=== PATIENT | female | born 1960 | race Caucasian/White ===

== ENCOUNTER 2019-06-05 11:34 | Inpatient (IN) ==
--- NOTE | 2019-06-05 13:52 | PROVIDER DOCUMENTATION ---
HPI-General Adult - General Chief Complaint: Flu Symptoms Stated Complaint: BODY PAIN Time Seen by Provider: 06/05/19 11:41 Source: patient Allergies/Adverse Reactions: Patient Allergies Allergy/AdvReac Type Severity Reaction Status Date / Time methadone [Methadone] AdvReac Severe HEADACHE Verified 05/24/12 09:38 Home Medications: Home Medication List Medication Instructions Recorded Confirmed Last Taken Type Famotidine [Pepcid] 20 mg PO DAILY 06/05/19 06/05/19 Unknown History Lisinopril 20 mg PO DAILY 06/05/19 06/05/19 Unknown History - History of Present Illness -Gen Adult Nature of Presenting Problems: [id number] presents to the ER accompanied by her sisters with c/o chills, body aches since yesterday and decreased appetite for 2 weeks. Patient denies any fever. Family reports AMS with progressing dementia. Patient is a cancer patient and has not been receiving chemo that they are aware of. Location of Pain/Injury: reports: generalized Pain Radiation: reports: no radiation Quality of Pain: reports: aching Onset/Duration: reports: 24 hours ago Associated Symptoms: reports: cough, fever/chills (chills), loss of appetite. denies: sinus congestion/drainage Similar Symptoms Previously?: No Recently seen or treated by another doctor?: No Review of Systems - Adult - REVIEW OF SYSTEMS - ADULT Constitutional: reports: see HPI, chills. denies: fever Eyes: reports: no symptoms reported Ears, Nose, Mouth & Throat: reports: no symptoms reported. denies: ear di scharge, ear pain, sinus problem Cardiovascular: reports: no symptoms reported. denies: chest pain, orthopnea, syncope Respiratory: reports: see HPI, cough. denies: shortness of breath, wheezing Gastrointestinal: reports: no symptoms reported. denies: abdominal pain, diarrhea, nausea, vomiting Genitourinary: reports: no symptoms reported Musculoskeletal: reports: no symptoms reported Integumentary: reports: no symptoms reported Neurological: reports: no symptoms reported Psychiatric: reports: no symptoms reported Endocrine: reports: no symptoms reported Hematologic/Lymphatic: reports: no symptoms reported Allergic/Immunologic: reports: no symptoms reported All Other Systems: Reviewed and Negative Past History - Adult - PAST MEDICAL HISTORY-ADULT Review of Records: reports: Old Records Reviewed, Nursing Assessment Review, Medications Reviewed, Social history reviewed & non-contributory. Major Childhood Illnesses: reports: denies history Cardiovascular: reports: denies history Respiratory: reports: denies history Gastrointestinal: reports: denies history Obstetrical/Gynecological: reports: denies history Genitourinary: reports: denies history Musculoskeletal: reports: denies history Neurological: reports: denies history Endocrine/Immune: reports: denies history Other Conditions: reports: denies history - IMMUNIZATION STATUS Childhood Immunizations: See Nurse Assessment Flu Vaccine: See Nurse Assessment - FAMILY HISTORY Family History: reviewed, not pertinent - SOCIAL HISTORY Smoking: denies Substance Use: denies Living Situation: family Physical Exam-General - PHYSICAL EXAM-ADULT Initial Vital Signs Reviewed: Yes - CONSTITUTIONAL General Appearance: alert, moderate distress - EYES Eyes: PERRL/EOMI, pink conjunctivae - HEAD, EARS, NOSE, MOUTH & THROAT HENMT: moist mucous membranes, TMs normal - NECK Neck: non-tender, full range of motion, supple. negative: lymphadenopathy - RESPIRATORY Respiratory: lungs clear, normal breath sounds, other (dry cough) - CARDIOVASCULAR Cardiovascular: regular rate, rhythm, tachycardia - GASTROINTESTINAL (ABDOMEN) Abdominal Exam: soft, tenderness (epigastric) - MUSCULOSKELETAL Extremity: normal gait - SKIN Integumentary: warm/dry - NEUROLOGIC Neurologic: grossly normal - PSYCHIATRIC Psych/Mental Status: other (patient oriented to name, birthday) Progress - PLAN OF CARE/RESULTS Progress/Plan/Lab Results: Vital Signs - 8 hr 06/05/19 11:46 Temperature 98.0 F Pulse Rate 117 H Respiratory Rate 16 Blood Pressure 145/92 O2 Sat by Pulse Oximetry 99 06/05/19 11:53 Influenza Screen - Final Nasopharyngeal Orders Category Date Time Status INFLUENZA SCREEN A/B Stat Lab 06/05/19 11:53 Completed Result Diagrams: 06/05/19 15:00 06/05/19 15:00 - CONSULTS/PCP/HOSPITALIST Notification #1 *Consult/PCP/Hospitalist*: Dr Kendall Time Discussed: 16:16 Reason/Comments: AMS, hyponatremia, hypokalemia Consult Disposition: Admit Departure - Departure Date of Disposition Decision: 06/05/19 Time of Disposition Decision: 16:16 DIAGNOSIS: Acute hypokalemia, Hyponatremia AMS (altered mental status) Qualifiers: Altered mental status type: unspecified Qualified Code(s): R41.82 - Altered mental status, unspecified Disposition: ADMITTED INPATIENT 09 Certified Medical Emergency: Emergent Condition: Critical Additional Instructions: ED Follow Up Instructions: You have been treated by a care provider in the Emergency Department. These instructions are being provided to you so you can have an understanding of how to care for yourself upon discharge. Upon discharge from the Emergency Department, you are responsible for making arrangements for follow-up care by a physician of your choice. Take all prescribed medications as directed. Return to the Emergency Department immediately for any new or worsening symptoms. You may call the Physician Referral phone number at [phone] to obtain a list of Physicians who are taking new patients. Referrals and Follow-Ups: Julio Barnes MD [Primary Care Provider] - - Critical Care Note This patient required my direct & personal management of CC.: No Attestation - Physician/ ANAND Attestation Patient care was provided by Advanced Practice Provider:: Yes Advanced Practice Provider:: Adarsh Yoon Advanced Practice Provider documentation review:: The Mid-level provider documentation, treatment plan and medical decision making was reviewed by the physician who agrees with all treatment and medical decision making by the MLP. The physician spent face to face time with patient:: No Advanced Practice Provider documentation review:: Supervising physician onsite and consulted in the evaluation and care of this patient. The physician did not have a face to face encounter with the patient.
--- NOTE | 2019-06-05 14:36 | Diag Imaging Result Doc PS360 ---
CHEST-2 VIEWS - 06/05/2019 INDICATION: lethargic COMPARISON: 01/17/2019 FINDINGS: Stable surgical suture lines in the right upper lobe. The lungs are clear. Heart size is normal. No pneumothorax or pleural effusion. IMPRESSION: No acute disease or change from prior. Electronically signed by Sivakumar Gipson 06/05/2019 2:34 PM
--- NOTE | 2019-06-05 14:52 | Diag Imaging Result Doc PS360 ---
CT HEAD W/O CONTRAST - 06/05/2019 INDICATION: AMS COMPARISON: 05/21/2018 FINDINGS: There is been some worsening in the mild periventricular white matter chronic microvascular ischemia. No intracranial mass or hemorrhage. There is significant vascular calcification of the carotid siphons. The skull is intact. The sinuses, mastoids, and middle ears are clear. IMPRESSION: Worsening cerebral white matter chronic microvascular ischemia. This exam was performed using automated exposure control, adjustment of mA or kV according to patient size, and/or use of iterative reconstruction technique Electronically signed by Sivakumar Gipson 06/05/2019 2:50 PM
[2019-06-05 15:14] LABS: URINE SOURCE CLEAN CATCH
[2019-06-05 15:19] LABS: BASO# 0.02 X1000 (0.0-0.2); BASO% 0.3 % (0.0-0.8); EOS# 0.03 X1000 (0.0-0.7); EOS% 0.5 % (0.0-10.0); HEMATOCRIT 33.4 % (37.0-47.0); HEMOGLOBIN 11.6 g/dL (12.0-16.0); LYMPH# 0.79 X1000 (1.2-3.4); LYMPH% 12.5 % (20.5-51.1); MCH 33.3 PG (27-31); MCHC 34.7 g/dL (33-37); MONO# 0.54 X1000 (0.11-0.59); MONO% 8.5 % (1.7-9.3); MPV 8.9 FL (7.4-10.4); NEUT# 4.96 X1000 (1.4-6.5); NEUT% 78.2 % (42.2-75.2); PLT 158 X1000 (130-400); RBC 3.48 XMIL (4.2-5.4); RDW 15.2 % (11.5-14.5); WBC 6.34 X1000 (4.8-10.8)
[2019-06-05 15:21] LABS: BILIRUBIN URINE SMALL (NEGATIVE); BLOOD URINE NEGATIVE (NEGATIVE); COLOR YELLOW; GLUCOSE URINE NEGATIVE (NEGATIVE); KETONE URINE NEGATIVE (NEGATIVE); LEUKOCYTES URINE NEGATIVE (NEGATIVE); NITRITE URINE NEGATIVE (NEGATIVE); PH URINE 6.5; PROTEIN URINE TRACE mg/dL (NEGATIVE); SP GRAVITY URINE 1.014; TURBIDITY URINE CLEAR (CLEAR); UROBILINOGEN URINE 6 mg/dL (NORMAL)
[2019-06-05 15:24] LABS: UR EPITHELIAL CELLS <10 /HPF (<10); URINE BACTERIA NEGATIVE /HPF; URINE RBC <10 /HPF (<10); URINE WBC <10 /HPF (<10)
[2019-06-05 15:33] LABS: URINE CRYSTALS NONE SEEN
[2019-06-05 15:34] LABS: URINE SMALL ROUND CELLS RENAL PRESENT
[2019-06-05 15:46] LABS: ALB/GLOB RATIO 0.7; CALCIUM 8.8 mg/dL (8.8-10.2); CREATININE 1.1 mg/dL (0.5-0.9); POTASSIUM 2.8 mmol/L (3.5-5.1); TOTAL BILIRUBIN 2.2 mg/dL (0.20-1.00); TOTAL PROTEIN 7.2 g/dL (6.3-8.3)
[2019-06-05 16:00] LABS: UR AMPHETAMINES QUAL NONE DETECTED (NONE DETECT); UR BARBITUATES QUAL NONE DETECTED (NONE DETECT); UR BENZODIAZEPIN QUAL NONE DETECTED (NONE DETECT); UR CANNABINOIDS QUAL NONE DETECTED (NONE DETECT); UR COCAINE QUAL NONE DETECTED (NONE DETECT); UR METHADONE QUAL NONE DETECTED (NONE DETECT); UR OPIATES QUAL PRESUMPTIVE POSITIVE (NONE DETECT); UR OXYCODONE QUAL NONE DETECTED (NONE DETECT); UR PCP QUAL NONE DETECTED (NONE DETECT)
[2019-06-05] MEDS ORDERED: NS 1,000 ML IV ONE (16:04)
[2019-06-05] MEDS ORDERED: KLOR-CON PO ONE ×2 (16:09→23:00)
[2019-06-05] MEDS ORDERED: M.V.I.-12 10 ML, FOLIC ACID 1 MG, MAGNESIUM SULFATE 1 GM, THIAMINE 100 MG in NS 1,000 ML IV ONE (16:10)
--- NOTE | 2019-06-05 17:52 | EKG Report ---
Test Performed on : 06/05/2019 3:19:11 PM Test Reason : ED. NO EKG ORDER FOR MUSE Blood Pressure : / mmHG Vent. Rate : 088 BPM Atrial Rate : 088 BPM P-R Int : 144 ms QRS Dur : 072 ms QT Int : 410 ms P-R-T Axes : 052 024 070 degrees QTc Int : 496 ms Normal sinus rhythm. Low voltage QRS Nonspecific T wave abnormality Abnormal ECG When compared with ECG of 17-JAN-2019 17:14, No significant change was found Unconfirmed Result
--- NOTE | 2019-06-05 18:49 | Diag Imaging Result Doc PS360 ---
EXAM: CT THORAX/ABD/PELVIS W/CON 06/05/2019 HISTORY: abd pain TECHNIQUE: This exam was performed using automated exposure control, adjustment of mA or kV according to patient size, and/or use of iterative reconstruction technique. COMMENT: Thorax: The current study is compared with that of 04/25/2019. There are no abnormal fluid collections. The aorta is not distended and there is no evidence of dissection. There has been previous right upper lobectomy. The appearance of the lung parenchyma has not changed significantly since the previous study. There are some calcified nodes present in the left hilum. The regional skeleton is stable in appearance. ABDOMEN: There are no previous abdominal studies available for comparison. The liver is markedly but heterogeneously hypodense, suggesting fatty change. There has been cholecystectomy. The aorta is not distended. There are atherosclerotic calcifications. The mesenteric and renal arteries are patent. The gastric antrum is not well distended and the possibility of mucosal thickening cannot be excluded. There is dilatation of the pancreatic duct with pancreatic calcifications and atrophy in the body and tail. There are multiple calcifications in the head of the pancreas as well as a focus of increased enhancement in the head of the pancreas measuring 3.5 x 2.0 x 3.4 cm. This was partially imaged on the CT of the chest from 04/25/2019. There is fairly abrupt narrowing of the pancreatic duct around the location of the mass. The common bile duct measures 7 mm in diameter. The pancreatic duct in the body of the pancreas measures almost 8 mm. Previously it measured less than six. The colon is not well distended. The small bowel is not distended. There is a left periaortic node below the renal pedicle measuring over 15 mm in diameter. Pelvis: There is some stool in the rectosigmoid colon. There is no evidence of free fluid. There has been hysterectomy. The urinary bladder is not distended. The regional skeleton is stable in appearance. IMPRESSION: 1. Stable CT of the chest. 2. Pancreatic mass with evidence of previous chronic pancreatitis. Dilatation of the pancreatic duct. Electronically signed by Scooby Hernandez 06/05/2019 6:46 PM
[2019-06-05] MEDS ORDERED: TYLENOL PO PRN (19:38)
[2019-06-05] MEDS ORDERED: ATIVAN PO SCH (19:41)
[2019-06-05] MEDS: POTASSIUM CHLORIDE 20 MEQ/SWI 20 MEQ/100 ML IVPB IV SCH ×2 (20:51→23:00)
--- NOTE | 2019-06-05 22:36 | HISTORY AND PHYSICAL ---
HISTORY OF PRESENT ILLNESS: A 58-year-old white female patient admitted with weakness, unsteady gait, confusion. The patient did have altered mental status, some nausea. The patient does drink alcohol heavily. History part was limited. Oral intake was poor. The patient was brought to the emergency room, evaluated by the ER physician. Admitted for further care. I evaluated the patient. LABORATORY DATA: CT scan noted. Discussed with the patient, her and daughter. We will admit the patient. IV hydration. Close observation. Seizure and DT precaution. Overall plan discussed. The detailed history and physical to be dictated. The patient's lab data revealed WBC 6.34, hemoglobin 11.6, hematocrit 33.4, potassium 2.8. Sodium 128, BUN 5, creatinine 1.1. Total bilirubin 2.2. Amylase and lipase were normal. Urine drug screen positive for opiates. cc: Julio Barnes MD
[2019-06-06] MEDS ORDERED: ZOFRAN IV PRN (05:01)
[2019-06-06 05:34] LABS: INR 1.24; PROTIME 15.8 Seconds (11.0-16.0)
[2019-06-06 05:47] LABS: AGAP 16; ALB/GLOB RATIO 0.7; ALBUMIN 2.9 g/dL (3.5-5.0); ALKALINE PHOSPHATASE 94 U/L (32-104); BUN 4 mg/dL (8-22); CALCIUM 8.1 mg/dL (8.8-10.2); CHLORIDE 98 mmol/L (98-107); COSMO 262; CREATININE 0.9 mg/dL (0.5-0.9); ESTIMATED GFR > 60; GLUCOSE 107 mg/dL (70-104); GOT 50 U/L (10-30); GPT 10 U/L (10-36); MAGNESIUM 2.2 mg/dL (1.5-2.7); POTASSIUM 4.1 mmol/L (3.5-5.1); SODIUM 132 mmol/L (136-145); TCO2 18 mmol/L (25-35); TOTAL BILIRUBIN 1.94 mg/dL (0.20-1.00); TOTAL PROTEIN 6.8 g/dL (6.3-8.3)
[2019-06-06 06:25] LABS: FREE T4 0.1 ng/dL (0.93-1.70)
[2019-06-06] MEDS ORDERED: M.V.I.-12 10 ML, FOLIC ACID 1 MG, MAGNESIUM SULFATE 1 GM, THIAMINE 100 MG in NS 1,000 ML IV ONE (06:44)
[2019-06-06] MEDS ORDERED: ATIVAN PO SCH (06:45)
[2019-06-06] MEDS ORDERED: TOPROL XL PO ONE (06:52)
[2019-06-06] MEDS: SYNTHROID PO SCH (06:59)
[2019-06-06] MEDS: PROTONIX IV SCH (07:00)
[2019-06-06] MEDS ORDERED: PROTONIX IV SCH (07:00)
[2019-06-06] MEDS ORDERED: SODIUM CHLORIDE 0.9% INJ SCH (07:00)
--- NOTE | 2019-06-06 08:01 | PROGRESS NOTE ---
DATE: 06/06/2019 SUBJECTIVELY: Ms. Agrawal is doing fair. The patient is still has some epigastric pain. No nausea or vomiting. No high-grade fever. Occasional chills. The patient does have at times tachycardia. No typical chest pain. Her O2 saturation is satisfactory. Patient admitted with alcohol abuse, abdominal pain, altered mental status. OBJECTIVE: Vital signs: Noted. Heart rate 117, blood pressure 145/92, temperature 98 degrees. Neck: Supple. No JVD. Lungs: Bilateral good air entry present. Cardiovascular: S1 and S2. Tachycardia. Abdomen: Soft. No distention. Tenderness in the epigastrium. Extremities: No cyanosis, clubbing. No acute DVT. Central nervous system: Alert, awake. Answering questions fair. CONSIDERATION: Patient admitted with abdominal pain, found to have pancreatic mass, chronic pancreatitis. Her other problems includes alcohol abuse, hypothyroidism, hypertension, tachycardia. LABORATORY DATA: Done today revealed PT/INR 1.24. Sodium 132, potassium improved to 4.1, blood sugar 107. Total bilirubin 1.94. TSH was 100, free T4 0.1. PLAN: I am going to resume her Synthroid, give her beta patsy, continue rest of the medicine, give her banana bag and then IV fluid, watch her for DT and seizure precaution, and GI consult with Dr. Haley. Overall plan discussed with the patient and she is in agreement. cc: Julio Barnes MD
--- NOTE | 2019-06-06 09:01 | HISTORY AND PHYSICAL ---
CHIEF COMPLAINT: Weakness, altered mental status. HISTORY OF PRESENT ILLNESS: A 58-year-old, white, female patient, admitted with chills, body ache, decreased appetite for 2 weeks, altered mental status. The patient is very vague and poor historian. The patient does have multiple medical problems, including hypertension, hypothyroidism, history of recurrent pancreatitis in the past, and chronic pancreatitis now, history of alcohol abuse, lung cancer. The patient is noncompliant to followup. Lately, the patient was not doing well. She was feeling weak, not eating well, increasing confusion, weakness. According to the patient and daughter, she was drinking hard liquor in large amount. She does have problem with recent memory. The patient did have weakness, some chills. She vomited once the day prior to admission. Does have cough with scanty sputum production. Complaining of pain in the abdomen, which was epigastric area. Few loose stools. No hematemesis or melena. Unquantified weight loss. No heat or cold intolerance. At times, generalized pain. She was feeling weak all over. History part was limited. No joint swelling or redness. No focal weakness. No further history available at this time. She denied any dysuria or hematuria. ALLERGIES: Methadone. HOME MEDICATIONS: Include Pepcid, lisinopril, the patient was supposed to be on Synthroid. PAST MEDICAL HISTORY: Significant for chronic pancreatitis, hypothyroidism, gastritis, history of lung cancer, history of throat cancer, chronic pain, alcohol abuse. PERSONAL HISTORY: . Lives with the . Nonsmoker. Does drink alcohol in large amount, hard liquor mainly. The patient buys pain medication from the street, and she was taking it. REVIEW OF SYSTEMS: As per HPI. No major depression. No suicidal or homicidal ideation. FAMILY HISTORY: Noncontributory. PHYSICAL EXAMINATION: GENERAL: Middle-aged, white female patient in mild distress. VITAL SIGNS: Blood pressure 145/92, pulse on admission was 117 (improved to 89), temperature 98 degrees, respirations 16, O2 saturation on room air was 99. SKIN: The patient does have some bruise ze and petechiae. HEENT: Head atraumatic, normocephalic. [place] conjunctivae. Icteric sclerae. Extraocular muscle movement normal. Fundus cannot be penetrated. Good oral hygiene. No tonsillopharyngeal congestion or exudate. Ears and nose benign. NECK: Supple. No JVD, thyromegaly, or lymphadenopathy. CHEST: Bilateral good air entry present. Few basal crepitations. Occasional wheezing. CARDIOVASCULAR: S1 and S2 heard. No gallop or thrill. ABDOMEN: Soft, globular. Bowel sounds present. The patient does have tenderness in the upper abdomen. No guarding or rigidity. EXTREMITIES: No cyanosis, clubbing. No acute DVT. CENTRAL NERVOUS SYSTEM: Alert, awake, able to move all 4 limbs. The patient did have problem with recent memory. At times, she was not oriented to time, place, and person. ADMISSION LABORATORY DATA: Hemoglobin 11.6, hematocrit 33.4, WBC count 6.34, platelet count 158,000. The patient did have hyponatremia, sodium of 128, potassium 2.8, blood glucose 135. Bilirubin 2.2, alkaline phosphatase was 96. Lipase was 32. Urinalysis was benign. Urine drug screen was positive for opiates. Alcohol level was 0. CONSIDERATION: The patient presented with altered mental status, epigastric pain, consideration of gastritis, metabolic encephalopathy. The patient does have history of hypertension, gastritis, chronic pancreatitis. I did a CT scan of the abdomen and pelvis, which did reveal possible pancreatic mass. CT of the head revealed significant or worsening cerebral white matter chronic microvascular ischemic changes. Other consideration, alcohol abuse. PLAN: Admit the patient. IV hydration. Symptomatic treatment. Close observation. DT precaution. Overall plan discussed at length with the patient and family. They are in agreement. Advised the patient to quit drinking. I am going to get GI consult with Dr. Haley. cc: Julio Barnes MD
[2019-06-06] MEDS: CREON PO SCH ×2 (12:02→17:20)
[2019-06-06] MEDS: NS + KCL 20 MEQ 1,000 ML IV SCH (17:22)
[2019-06-06] MEDS: NORCO-7.5 PO PRN (18:00)
--- NOTE | 2019-06-06 19:48 | GASTROENTEROLOGY CONSULTATION ---
DATE: 06/06/2019 REASON FOR CONSULTATION: Possible pancreatic mass. HISTORY OF PRESENT ILLNESS: This is a 58-year-old female who came in to the office with chills, body aches and decreased appetite with altered mental status. Patient was last seen in our office in 2011. She did not follow up for her repeat colonoscopy that was recommended in 2014. She had an EGD in 2011 that showed pharyngitis. Indications were for dysphagia. She has had a colonoscopy in 2011 with findings of polyps in the hepatic flexure. At that time, she is recommended to have followup colonoscopy in 3 years, but she did not follow in the office. Pathology of the colon polyps at that time was tubular adenomatous polyps. The patient has reported some progressive abdominal pain. She has had workup in the hospital including a CT scan of abdomen and pelvis. Findings showed a pancreatic mass with evidence of previous chronic pancreatitis and noted dilation of pancreatic duct. Patient does drink alcohol on a daily basis. She reports drinking up to half a gallon of whiskey daily. She denies tobacco use. She quit about 10 years ago. PAST MEDICAL HISTORY: Chronic pancreatitis, hypothyroidism, gastritis, history of lung cancer, history of throat cancer, chronic pain syndrome, alcohol abuse drinking up to half a gallon of whiskey a day. PAST SURGICAL HISTORY: Removal of a cyst from her pancreas, history of cholecystectomy. ALLERGIES TO: Methadone causing headache. MEDICATIONS: Pepcid 20 mg daily, Synthroid 75 mcg daily, lisinopril 20 mg daily. SOCIAL HISTORY: Quit tobacco use 10 years ago. Continues to drink heavily, reported a half a gallon of whiskey a day. She is . She has 4 children. REVIEW OF SYSTEMS: Per history of present illness. PHYSICAL EXAMINATION: Vital Signs: Temperature 98 degrees, pulse 76, respirations 15, blood pressure 148/92. General: Patient is awake, alert, in no acute distress at the time of my visit. She does have some abdominal pain. No reported nausea or vomiting. HEENT: Normocephalic, atraumatic. Pupils equal, round, reactive to light. Sclerae nonicteric. Respiratory: Essentially clear. Cardiovascular: Regular rate and rhythm. Abdomen: Soft. Positive bowel sounds. Some tenderness with palpation. Extremities: No lower extremity edema noted. Neurologic: Cranial nerves 2-12 grossly intact. Patient is awake and alert. LABORATORY: Hematology 6.34, hemoglobin 11.6, hematocrit 33.4, MCV 96.0, platelet 158,000. Coagulation ProTime 15.8, INR 1.24. Chemistry: Sodium 132, potassium 4.1, chloride 98, CO2 18, BUN 4, creatinine 0.9, glucose 107, calcium 8.1, magnesium 2.2. Total bilirubin 1.94. AST 50, ALT 10. Alkaline phosphatase 94. Ammonia 38. Vitamin B12 1819. TSH 100.0. Free T4 0.100, amylase 44, lipase 32. IMAGING STUDIES: CT of the head showed worsening cerebral white matter chronic microvascular ischemia. CT scan of the abdomen and pelvis showed stool in the rectosigmoid colon. Stable CT of the chest. Pancreatic mass with evidence of previous chronic pancreatitis and dilatation of pancreatic duct. ASSESSMENT AND PLAN: 1. Imaging studies questionable for pancreatic mass. CA19-9 has been ordered for the waiting on results. 2. Alcohol abuse. Strongly encouraged cessation of alcohol. 3. History of chronic pancreatitis. 4. Elevated TSH. Patient is on Synthroid. PLAN: Continue symptomatic treatment for abdominal pain, nausea, or vomiting. Continue Synthroid. Creon has been ordered for pancreatic insufficiency due to chronic pancreatitis. Waiting on CA19-9. We will continue to follow. Patient may require endoscopic ultrasound with biopsy for further definitive diagnosis. Further plans to be made as needed. I have discussed this case with Dr. Haley. Dictated by SHIRA Ruiz for Robert Haley MD cc: SHIRA Romo MD Bharat K. Vakharia, MD
[2019-06-07] MEDS: NS + KCL 20 MEQ 1,000 ML IV SCH ×3 (02:51→16:30)
[2019-06-07] MEDS: NORCO-7.5 PO PRN (03:21)
[2019-06-07 05:22] LABS: BASO# 0.04 X1000 (0.0-0.2); BASO% 0.9 % (0.0-0.8); EOS# 0.08 X1000 (0.0-0.7); EOS% 1.9 % (0.0-10.0); HEMATOCRIT 30.5 % (37.0-47.0); HEMOGLOBIN 10.2 g/dL (12.0-16.0); IMM GRAN# 0.02 X1000 (0.0-0.04); IMM GRAN% 0.5 % (0.0-0.5); LYMPH# 1.08 X1000 (1.2-3.4); LYMPH% 25.3 % (20.5-51.1); MCH 33.4 PG (27-31); MCHC 33.4 g/dL (33-37); MONO# 0.27 X1000 (0.11-0.59); MONO% 6.3 % (1.7-9.3); MPV 9.1 FL (7.4-10.4); NEUT# 2.78 X1000 (1.4-6.5); NEUT% 65.1 % (42.2-75.2); PLT 148 X1000 (130-400); RBC 3.05 XMIL (4.2-5.4); RDW 16.1 % (11.5-14.5); WBC 4.27 X1000 (4.8-10.8)
[2019-06-07] MEDS: PROTONIX IV SCH ×2 (05:49→06:35)
[2019-06-07] MEDS: SYNTHROID PO SCH ×2 (05:50→06:36)
[2019-06-07 05:52] LABS: ALB/GLOB RATIO 0.7; ALBUMIN 2.5 g/dL (3.5-5.0); CALCIUM 7.9 mg/dL (8.8-10.2); CREATININE 1.1 mg/dL (0.5-0.9); POTASSIUM 3.9 mmol/L (3.5-5.1); TOTAL BILIRUBIN 1.21 mg/dL (0.20-1.00); TOTAL PROTEIN 6.1 g/dL (6.3-8.3)
[2019-06-07 07:41] LABS: HEMOGLOBIN A1C 5.6 % (4.8-6.0)
[2019-06-07] MEDS ORDERED: M.V.I.-12 10 ML, FOLIC ACID 1 MG, MAGNESIUM SULFATE 1 GM, THIAMINE 100 MG in NS 1,000 ML IV SCH ×10 (09:00)
--- NOTE | 2019-06-07 09:30 | PROGRESS NOTE ---
DATE: 06/07/2019 SUBJECTIVE: Ms. Agrawal is doing fair. Complaining of vague pain in the abdomen. No hallucination. No tremulousness. No fever or chills. Denied any tachycardia, no dysuria or hematuria. OBJECTIVE: Her vital signs noted. Neck is supple. No JVD. Lungs: Bibasilar crepitations. Heart S1 and S2 heard. Abdomen: Soft, globular. Bowel sounds present. Mild epigastric tenderness extremities no cyanosis, clubbing. No acute DVT. MECHANICAL OXIDIZER: Alert, awake able to move all 4 limbs. LABORATORY DATA: Done today, hemoglobin 10.2, hematocrit 30.5. Platelet count 148,000. Electrolytes: Potassium 3.9 sodium 132. BUN was 5 creatinine 1.1. Bilirubin 1.21. B12 and folate was the above normal. IMPRESSION: Patient admitted with abdominal pain, and gastritis. Found to have pancreatic mass, chronic pancreatitis, alcohol abuse hypothyroidism. We resume her Synthroid hypertension. Malnutrition. Overall patient is doing better. We will continue current treatment. Close observation. PLAN: Overall plan discussed at length with the patient and she is in agreement. cc: Julio Barnes MD
[2019-06-07] MEDS: CREON PO SCH ×3 (10:45→16:29)
[2019-06-07] MEDS: NORCO-5 PO PRN ×2 (13:15→19:54)
--- NOTE | 2019-06-07 17:43 | GASTROENTEROLOGY PROGRESS NOTE ---
DATE: 06/07/2019 SUBJECTIVE: Patient is awake and alert. She still reports some abdominal pain. She is being treated for pancreatitis, findings of possible pancreatic mass. CA19-9 is pending. OBJECTIVE: Vital Signs: Temperature 97.5 degrees, pulse 64, respirations 16, blood pressure 123/74. General: Patient is awake and alert in no acute distress. LABORATORY DATA: Hematology: WBC 4.27 hemoglobin 10.2, hematocrit 30.5, MCV 100.0, platelets 148,000. Chemistry: Sodium 132, potassium 3.9, chloride 103, CO2 19, BUN 5, creatinine 1.1, glucose 111, total bilirubin 1.21, AST 51, ALT 10, alkaline phosphatase 80. ASSESSMENT AND PLAN: 1. Imaging studies questionable for pancreatic mass. CA19-9 is pending. Would follow up on those results. 2. History of chronic pancreatitis. 3. Alcohol abuse. Patient has been counseled on alcohol cessation. 4. Elevated TSH. Continue on Synthroid. Continue symptomatic treatment for abdominal pain, nausea and vomiting. Creon has been ordered. Continue Synthroid. Waiting on CA-19-9. She may require endoscopic ultrasound as an outpatient at a tertiary facility. I recommend she follow up with us as an outpatient. I have discussed this case with Dr. Haley. Dictated by SHIRA Ruiz for Robert Haley MD cc: SHIRA Romo MD Bharat K. Vakharia, MD
[2019-06-08] MEDS: NORCO-5 PO PRN (03:47)
[2019-06-08] MEDS: SYNTHROID PO SCH (06:06)
[2019-06-08] MEDS: PROTONIX IV SCH (06:06)
[2019-06-08] MEDS: CREON PO SCH (08:57)
[2019-06-08 09:03] VITALS: BP 149/89
--- NOTE | 2019-06-09 04:24 | DISCHARGE SUMMARY ---
ADMISSION DATE: 06/05/2019 DISCHARGE DATE: 06/08/2019 FINAL DISCHARGE DIAGNOSES: 1. Epigastric pain, most likely due to gastritis. 2. Metabolic encephalopathy. 3. Alcohol abuse. 4. Chronic pancreatitis. 5. Pancreatic mass with elevated CA 19-9, suspicious for pancreatic malignancy. 6. Hypertension. 7. Hypothyroidism. 8. Gastritis. 9. History of lung cancer. HISTORY AND HOSPITAL COURSE: Mrs. Agrawal is a 58-year-old female patient not eating well, feeling weak. The patient did have confusion at home. The patient was drinking heavily at time, half to a pint of whiskey a day. Oral intake was poor. The patient did have increasing confusion and disorientation. The patient was brought to the emergency room. Her CT scan of the brain did reveal worsening cerebral white matter chronic microvascular ischemic changes. Blood work revealed significant hypokalemia and hyponatremia, significant hypothyroidism. Urinalysis did not reveal UTI. Her drug screen was positive for opiates. The patient was getting pain medicine from friends. The patient was admitted, given banana bag IV hydration, symptomatic treatment. Ativan for alcohol withdrawal. We did a CT scan of the chest and abdomen. Chest because of her history of lung cancer, which revealed stable CT of the chest. CT of the abdomen and pelvis revealed pancreatic mass with evidence of previous chronic pancreatitis, dilatation of the pancreatic duct. I did see CA 19-9, which was elevated, it was 323, normal being less than 35. Patient's clinical condition gradually improved. No evidence of alcohol withdrawal. The patient is eager to go home to spend [place] with her grandchildren. Sample Tailor evaluated patient. Her blood work showed improvement, initial sodium 128, improved to 132. Her bilirubin was 2.2, improved to 1.21. Vitamin B12 and folate were normal. TSH was 100, free T4 was 0.1. Started her on Synthroid. Overall, patient is doing better and I am planning to discharge her home today. DISCHARGE PHYSICAL EXAMINATION: Vital signs: Noted. Neck: Supple. No JVD. Lungs: Bibasilar crepitations. Heart: S1 and S2 heard. Abdomen: Soft, mild tenderness in the epigastrium. Extremities: No cyanosis, clubbing. No acute DVT. CNC MILL AND LATHE OPERATOR: Alert, awake. Able to move all 4 limbs. Overall, discharge condition satisfactory. Discussed at length about alcohol cessation, risk of continued drinking. Discuss about fall precautions. I gave her pain medicine and Ativan for alcohol withdrawal. Discussed side effects and precaution with the patient and also with family. We discussed her CT findings with the daughter with her permission. I am going to get outpatient followup with floorworker lasting in [place] for ultrasound-guided biopsy. OVERALL DISCHARGE CONDITION: Satisfactory. The patient and understood about not to drink alcohol. cc: Julio Barnes MD
== END 2019-06-08 10:56 | disposition home or self-care (01) | DRG 391 ==
LOC: ED 11:34 → EDIPHOLD 17:25 → 1N 21:44
PROVIDERS: ADMIT Internal Medicine; ATTEND Internal Medicine

== ENCOUNTER 2019-06-27 13:06 | Inpatient (IN) ==
[2019-06-27] MEDS ORDERED: PRINIVIL PO ONE (14:25)
[2019-06-27] MEDS ORDERED: M.V.I.-12 10 ML, THIAMINE 100 MG, FOLIC ACID 1 MG, MAGNESIUM SULFATE 1 GM in NS 1,000 ML IV ONE (15:00)
[2019-06-27] MEDS: PROTONIX IV SCH (15:33)
[2019-06-27] MEDS: DUONEB (A & A) INH SCH ×2 (16:12→23:37)
[2019-06-27] MEDS: ATIVAN PO SCH (21:44)
[2019-06-27] MEDS: NORCO-5 PO PRN (21:44)
[2019-06-28] MEDS: DUONEB (A & A) INH SCH ×4 (03:33→21:34)
--- NOTE | 2019-06-28 03:55 | HISTORY AND PHYSICAL ---
HISTORY OF PRESENT ILLNESS: Ms. Agrawal is a 58-year-old female patient, not doing well the last few days. The patient is complaining of abdominal pain mainly in the upper abdomen, oral intake was poor. According to the patient and her the last 5 days she did not eat any food, she had only a few sips of liquid. The patient vomited once yesterday, she had a few loose bowel movements. The patient was feeling weak, she was sleeping more. Her last alcohol drink was 3 days ago where she had a pint of whiskey. The patient denied any head injury or fall. The patient did have chills but no fever, complaining of cough with scanty sputum production. No hemoptysis. No pleuritic-type of chest pain. No dysphagia or odynophagia. During her last admission the patient was found to have pancreatic mass with evidence of chronic pancreatitis and dilation of pancreatic duct. The patient recently had endoscope ultrasound done, result reviewed and discussed with the patient. Instead of repeatedly saying no to the patient and explaining the risk of drinking, the patient is still drinking alcohol. Unquantified weight loss. The patient does have cold intolerance. She is poorly compliant to her medication for hypertension and hypothyroidism. No recent seizure-type episode. No further history available at this time. ALLERGIES: No known drug allergy. MEDICATIONS: Include Synthroid, lisinopril. She was supposed to take multivitamin and thiamine, which she was not taking. PAST MEDICAL HISTORY: Hypertension, hypothyroidism, gastritis, chronic pancreatitis, pancreatic mass, COPD, history of lung cancer, history of throat cancer, chronic pain, alcohol abuse. PERSONAL HISTORY: , lives with the . Nonsmoker. The patient does drink alcohol in moderate to significant amounts. The patient does have a strong history of substance abuse. The patient is on disability. ALLERGIES: The patient is allergic to methadone. FAMILY HISTORY: Noncontributory. REVIEW OF SYSTEMS: As per HPI. PHYSICAL EXAMINATION: GENERAL: Middle-aged white female patient in mild distress. VITAL SIGNS: On admission her blood pressure was 179/112, pulse 88, respirations 16, temperature 98.6 degrees. SKIN: Dry turgor. HEENT: Atraumatic, normocephalic. [place] conjunctivae. Anicteric sclerae. Extraocular muscle movement normal. Fundus cannot be penetrated. Good oral hygiene. Dry oral mucosa. Ears and nose benign. NECK: Supple. No JVD, thyromegaly or lymphadenopathy. CHEST: Bilateral good air entry present. A few basal crepitations. No rales. CARDIOVASCULAR: S1 and S2 heard. No gallop or thrill. ABDOMEN: Soft, globular. Bowel sounds present. The patient does have tenderness in the epigastrium and upper abdomen. No guarding or rigidity. EXTREMITIES: No cyanosis, clubbing. No acute DVT. Peripheral pulsation intact. FLIGHT ATTENDANT: Alert, awake. The patient was weak, answering questions fair, able to move all 4 limbs. LABORATORY DATA: Done today revealed a hemoglobin of 12.1, hematocrit 35. WBC count is 6.29, platelet count 133,000. Sodium was 134, potassium 3.6, chloride 96. BUN was 8, creatinine 0.8, blood glucose 126. Her total bilirubin was 5.38, AST 157, ALT was 108, alkaline phosphatase 142. Urinalysis was benign. Urine drug screen was negative. IMAGING: I also did a chest x-ray, which revealed stable chest. Abdominal x- ray revealed nonspecific bowel gas pattern, and pancreatic calcifications. ASSESSMENT: The patient admitted with nausea, vomiting, abdominal pain, clinical dehydration. The patient does have jaundice, chronic pancreatitis, history suggestive of pancreatic mass and pancreatic cancer, gastritis, alcohol abuse, chronic back pain, hypertension, hypothyroidism. PLAN: The plan is to admit the patient. IV hydration. Close observation. The patient is noncompliant to treatment plan. I started the patient on banana bag. IV hydration. Check appropriate labs. GI consult. Overall plan and prognosis discussed with the patient and her . They understood and agreed. cc: Julio Barnes MD [facility]
[2019-06-28] MEDS: NORCO-5 PO PRN ×2 (05:16→16:53)
[2019-06-28] MEDS: NS + KCL 20 MEQ 1,000 ML IV SCH ×3 (05:17→18:51)
[2019-06-28] MEDS: ATIVAN PO SCH ×3 (06:22→21:42)
[2019-06-28 07:45] LABS: BASO# 0.03 X1000 (0.0-0.2); BASO% 0.6 % (0.0-0.8); EOS# 0.04 X1000 (0.0-0.7); EOS% 0.8 % (0.0-10.0); HEMATOCRIT 32.5 % (37.0-47.0); HEMOGLOBIN 10.8 g/dL (12.0-16.0); LYMPH# 0.99 X1000 (1.2-3.4); LYMPH% 19.6 % (20.5-51.1); MCH 33.6 PG (27-31); MCHC 33.2 g/dL (33-37); MCV 101.2 FL (81-99); MONO# 0.82 X1000 (0.11-0.59); MONO% 16.2 % (1.7-9.3); MPV 9.4 FL (7.4-10.4); NEUT# 3.18 X1000 (1.4-6.5); NEUT% 62.8 % (42.2-75.2); PLT 105 X1000 (130-400); RBC 3.21 XMIL (4.2-5.4); RDW 18.4 % (11.5-14.5); WBC 5.06 X1000 (4.8-10.8)
[2019-06-28 08:11] LABS: INR 1.42; PROTIME 17.6 Seconds (11.0-16.0)
[2019-06-28 08:12] LABS: PTT 40.1 Seconds (22.3-41.8)
[2019-06-28 08:19] LABS: FREE T4 0.33 ng/dL (0.93-1.70)
[2019-06-28 08:39] LABS: ESTIMATED GFR > 60
[2019-06-28 08:40] LABS: TSH 176.8 uIUmL (0.27-4.20)
[2019-06-28 08:41] LABS: ALB/GLOB RATIO 0.7; ALBUMIN 2.7 g/dL (3.5-5.0); ALKALINE PHOSPHATASE 113 U/L (32-104); BUN 8 mg/dL (8-22); CALCIUM 8.5 mg/dL (8.8-10.2); CREATININE 0.9 mg/dL (0.5-0.9); GLUCOSE 81 mg/dL (70-104); GOT 123 U/L (10-30); GPT 79 U/L (10-36); MAGNESIUM 2.1 mg/dL (1.5-2.7); TCO2 15 mmol/L (25-35); TOTAL BILIRUBIN 4.16 mg/dL (0.20-1.00); TOTAL PROTEIN 6.4 g/dL (6.3-8.3)
[2019-06-28 08:49] LABS: CHLORIDE 98 mmol/L (98-107); POTASSIUM 3.7 mmol/L (3.5-5.1); SODIUM 135 mmol/L (136-145)
[2019-06-28 08:50] LABS: AGAP 22
[2019-06-28 08:51] LABS: COSMO 268
[2019-06-28] MEDS: SODIUM CHLORIDE 0.9% INJ SCH ×2 (09:35→13:29)
[2019-06-28] MEDS: M.V.I.-12 10 ML, FOLIC ACID 1 MG, MAGNESIUM SULFATE 1 GM, THIAMINE 100 MG in NS 1,000 ML IV SCH (09:37)
[2019-06-28] MEDS ORDERED: SYNTHROID IV ONE (12:02)
[2019-06-28] MEDS ORDERED: SODIUM CHLORIDE 0.9% INJ ONE (12:02)
--- NOTE | 2019-06-28 12:14 | Diag Imaging Result Doc PS360 ---
EXAM: US ABDOMEN-COMPLETE 06/28/2019 HISTORY: abd pain nausea and vomiting TECHNIQUE: Abdominal ultrasound COMMENT: The liver is nodular in contour and there is a small amount of fluid in the subphrenic space on the right. The common bile duct is dilated at almost 11 mm. There is antegrade flow in the portal vein. The gallbladder is surgically absent. The pancreatic head and body are normal in appearance. The tail is partially obscured. The visualized portions of the aorta and inferior vena cava are within normal limits. The kidneys are without evidence of hydronephrosis or mass. The spleen is not enlarged measuring less than 11 cm. IMPRESSION: Minimal ascites. Probable cirrhosis. Electronically signed by Scooby Hernandez 06/28/2019 12:11 PM
[2019-06-28] MEDS: CREON PO SCH ×2 (13:12→16:41)
[2019-06-28] MEDS: LACTULOSE PO SCH (13:13)
[2019-06-28] MEDS ORDERED: BLISTEX MEDICATED BERRY LIP BALM TOP PRN (13:15)
[2019-06-28] MEDS: PROTONIX IV SCH (13:29)
--- NOTE | 2019-06-28 18:39 | GASTROENTEROLOGY CONSULTATION ---
DATE: 06/28/2019 REASON FOR CONSULTATION: Nausea, vomiting, abdominal pain, questionable pancreatic mass. HISTORY OF PRESENT ILLNESS: This is a 58-year-old female who was recently in the hospital at the end of May. We had seen her at that time, and during workup, she had findings of pancreatitis and possible pancreatic mass. She was referred to [place], Dr. Cotter, by Dr. Barnes, and she had an endoscopic ultrasound. I do not have the results available. I have spoken with the . At the time of my initial visit, patient was gone down for an abdominal ultrasound. Patient's states that she has had problems with nausea and episodes of vomiting over the last week. She has not been eating for almost a week. He states she has been sleeping more. She sleeps during the day and also at night. She has only been having sips of liquids. Patient states initially after her discharge before [place] she was doing fairly well and had actually went and seen her daughter during '. He states he believes her last alcohol use was about 1 week ago. Patient states that Dr. Cotter said there was no evidence of a pancreatic mass, but there were noted stones in the pancreas. I do not have the full details of those reports. Patient's states they do have a followup appointment with Dr. Cotter in 2 months to repeat the endoscopic ultrasound. I did go back and see the patient after she returned from her ultrasound, and she was eating a [employer] cheeseburger and fries. She did tolerate the food and did not have any episodes of vomiting so far today. She does report some abdominal pain. PAST MEDICAL HISTORY: Hypertension, hypothyroidism, chronic pancreatitis, history of possible pancreatic mass and recent evaluation by Dr. Cotter with endoscopic ultrasound, COPD, history of lung cancer, history of throat cancer, chronic pain, alcohol abuse. PAST SURGICAL HISTORY: Cyst removed from her pancreas and history of cholecystectomy. ALLERGIES: No known drug allergies reported. HOME MEDICATIONS: Synthroid 75 mcg daily, Creon 6000 units 3 times a day, lisinopril 10 mg daily, Protonix 40 mg daily. SOCIAL HISTORY: Quit tobacco use 10 years ago. She has continued to drink alcohol and reported that her most recent alcohol use was about a week ago. She is . She has 4 children. REVIEW OF SYSTEMS: Per history of present illness. PHYSICAL EXAMINATION: Vital Signs: Temperature 97.9 degrees, pulse 85, respirations 18, blood pressure 127/80. General: The patient was awake at the time of my repeat visit. She was sitting up in the bed eating a [employer] hamburger and [place] fries and seemed to be tolerating it well. HEENT: Normocephalic, atraumatic. Pupils equal, round, reactive to light. Sclerae nonicteric. Cardiovascular: Regular rate and rhythm. Respiratory: Lung sounds essentially clear. Abdomen: Soft. Positive bowel sounds. Some tenderness in the upper abdomen. Extremities: No lower extremity edema noted. Neurological: She is awake and alert. DIAGNOSTIC RESULTS: Laboratory: Hematology: WBC 5.06, hemoglobin 10.8, hematocrit 32.5, MCV 101.2, platelets 105,000. Coagulation: Protime 17.6, INR 1.42, PTT 40.1. Chemistry: Sodium 135, potassium 3.7, chloride 98, CO2 15, BUN 8, creatinine 0.9, glucose 81, calcium 8.5, magnesium 2.1, total bilirubin 4.16, AST 123, ALT 79, alkaline phosphatase 113, ammonia 20, albumin 2.7, TSH 176.8, free T4 0.33. Imaging: Abdominal ultrasound showed liver to be nodular with a small amount of fluid in the subphrenic space on the right, common bile duct dilated at 11 mm. Gallbladder is absent. The pancreatic head and body reported as normal, question of probable cirrhosis. ASSESSMENT AND PLAN: 1. History of chronic pancreatitis. 2. Abdominal pain. 3. Nausea and vomiting. 4. Anorexia. 5. During last admission, there was a question of pancreatic mass. Patient has had evaluation by Dr. Cotter with endoscopic ultrasound. I do not have the report available. We will request it from Dr. Barnes. Per patient and , they have a followup appointment in [place] for repeat endoscopic ultrasound in 2 months for further evaluation. Continue to follow that recommendation. Could recommend symptomatic treatment for nausea, vomiting and abdominal pain. We will start Creon and have also ordered lactulose. Patient seems to have tolerated diet for lunch. Further plans will be made according to her progress. It is recommended she follow up with us in the office after discharge, and I have given her contact information to call and make an appointment. I have discussed this case with Dr. Haley. Thank you for this consultation. Dictated by SHIRA Ruiz for Robert Haley MD cc: SHIRA Romo MD Bharat K. Vakharia, MD
[2019-06-29] MEDS: DUONEB (A & A) INH SCH ×4 (03:24→21:50)
[2019-06-29] MEDS: NORCO-5 PO PRN ×2 (06:39→13:42)
[2019-06-29] MEDS: ATIVAN PO SCH ×3 (06:40→19:59)
[2019-06-29] MEDS: NS + KCL 20 MEQ 1,000 ML IV SCH ×2 (06:48→17:24)
[2019-06-29] MEDS: M.V.I.-12 10 ML, FOLIC ACID 1 MG, MAGNESIUM SULFATE 1 GM, THIAMINE 100 MG in NS 1,000 ML IV SCH (08:26)
[2019-06-29] MEDS: LACTULOSE PO SCH (08:27)
[2019-06-29] MEDS: CREON PO SCH ×3 (08:27→17:24)
[2019-06-29] MEDS: SYNTHROID PO SCH (11:42)
[2019-06-29] MEDS: PRINIVIL PO SCH (11:43)
[2019-06-29] MEDS ORDERED: M.V.I.-12 10 ML, FOLIC ACID 1 MG, MAGNESIUM SULFATE 1 GM, THIAMINE 100 MG in NS 1,000 ML IV ONE (11:56)
[2019-06-29 12:33] LABS: HEPATITIS PROFILE ACUTE SEE COMMENTS
[2019-06-29] MEDS: PROTONIX IV SCH (13:43)
[2019-06-29] MEDS: SODIUM CHLORIDE 0.9% INJ SCH (13:43)
--- NOTE | 2019-06-29 14:48 | PROGRESS NOTE ---
DATE: 06/29/2019 SUBJECTIVE: Ms. Agrawal is feeling some better. Her oral intake is improving. The patient still has some pain in her stomach. No diarrhea, blood or mucus in the stool. Denied any dysuria or hematuria. Occasional cough. OBJECTIVE: Vital signs: Noted. Blood pressure at times staying high. Neck: Supple. No JVD. Lungs: Bilateral good air entry present. Cardiovascular: S1 and S2 heard. Abdomen: Soft, mild tenderness right upper quadrant. Extremities: No cyanosis, clubbing. No acute DVT. Central nervous system: Alert, awake, able to move all 4 limbs. LABORATORY DATA: Done yesterday noted. I am going to repeat blood work tomorrow. ASSESSMENT: Her problems include upper abdominal pain, pancreatic mass and chronic pancreatitis, hypertension, hypothyroidism. PLAN: I am going to advance her diet. If clinical condition permits, we will plan discharge patient home soon. Encouraged patient to quit drinking alcohol. I am going to follow CA-19-9 to see the trend. cc: Julio Barnes MD
[2019-06-30] MEDS: NORCO-5 PO PRN ×3 (02:40→15:31)
[2019-06-30] MEDS: DUONEB (A & A) INH SCH ×4 (03:53→22:48)
[2019-06-30] MEDS: ATIVAN PO SCH ×3 (06:28→20:01)
[2019-06-30 07:51] LABS: BASO# 0.05 X1000 (0.0-0.2); BASO% 1.2 % (0.0-0.8); EOS# 0.05 X1000 (0.0-0.7); EOS% 1.2 % (0.0-10.0); HEMATOCRIT 32.6 % (37.0-47.0); HEMOGLOBIN 10.8 g/dL (12.0-16.0); LYMPH# 0.59 X1000 (1.2-3.4); LYMPH% 13.7 % (20.5-51.1); MCH 35.2 PG (27-31); MCHC 33.1 g/dL (33-37); MCV 106.2 FL (81-99); MPV 9.4 FL (7.4-10.4); NEUT# 3.01 X1000 (1.4-6.5); NEUT% 69.9 % (42.2-75.2); PLT 74 X1000 (130-400); RBC 3.07 XMIL (4.2-5.4)
[2019-06-30 08:15] LABS: AGAP 13; ALB/GLOB RATIO 0.9; ALBUMIN 2.8 g/dL (3.5-5.0); ALKALINE PHOSPHATASE 106 U/L (32-104); BUN 4 mg/dL (8-22); CALCIUM 8.3 mg/dL (8.8-10.2); CHLORIDE 104 mmol/L (98-107); COSMO 266; CREATININE 0.8 mg/dL (0.5-0.9); ESTIMATED GFR > 60; GLUCOSE 105 mg/dL (70-104); GOT 102 U/L (10-30); GPT 66 U/L (10-36); POTASSIUM 3.7 mmol/L (3.5-5.1); SODIUM 134 mmol/L (136-145); TCO2 17 mmol/L (25-35); TOTAL BILIRUBIN 2.69 mg/dL (0.20-1.00)
[2019-06-30] MEDS: CREON PO SCH ×3 (08:26→17:20)
[2019-06-30] MEDS: LACTULOSE PO SCH (08:27)
[2019-06-30] MEDS: PRINIVIL PO SCH (08:27)
[2019-06-30] MEDS: SYNTHROID PO SCH (08:27)
[2019-06-30] MEDS: M.V.I.-12 10 ML, FOLIC ACID 1 MG, MAGNESIUM SULFATE 1 GM, THIAMINE 100 MG in NS 1,000 ML IV SCH (09:48)
[2019-06-30] MEDS ORDERED: NS + KCL 20 MEQ 1,000 ML IV SCH (12:29)
--- NOTE | 2019-06-30 12:51 | PROGRESS NOTE ---
DATE: 06/30/2019 SUBJECTIVE: Ms. Agrawal is doing fair. Oral intake variable. She denied any chest pain. Still has pain in the upper abdomen. At times, nausea. No vomiting. The patient does have diarrhea. OBJECTIVE: Vital Signs: Noted. Neck: Supple. No JVD, thyromegaly, or lymphadenopathy. Chest: Bibasilar crepitation. Heart: S1 and S2 heard. Abdomen: Soft, globular. Mild epigastric tenderness. Extremities: No cyanosis, clubbing. No acute DVT. DOG GROOMER: Alert, awake, able to move all 4 limbs. CONSIDERATION: The patient's problems include upper abdominal tenderness. The patient does have a history of pancreatic mass. Her jaundice seems to be improving. Alkaline phosphatase came down some. CA19-9 elevated. I did hepatitis profile, and the patient is positive for hepatitis C. Other problems include hypertension, hypothyroidism, gastritis. I had lengthy discussion with the patient about stopping alcohol and taking medicine regularly. I also discussed my plan with her, her , and her sister yesterday, and if the patient does not behave, she can have much more grave complication. Timber Bucker is following the patient with us. cc: Julio Barnes MD
[2019-06-30] MEDS: PROTONIX IV SCH (14:03)
[2019-06-30] MEDS: SODIUM CHLORIDE 0.9% INJ SCH (14:04)
[2019-07-01] MEDS: DUONEB (A & A) INH SCH ×4 (03:41→23:28)
[2019-07-01] MEDS: NORCO-5 PO PRN ×3 (04:37→22:12)
[2019-07-01] MEDS: ATIVAN PO SCH ×4 (05:59→22:13)
[2019-07-01] MEDS ORDERED: LASIX IV ONE (06:24)
--- NOTE | 2019-07-01 07:05 | PROGRESS NOTE ---
DATE: 07/01/2019 SUBJECTIVE: Ms. Agrawal is doing fair and complaining of back pain and generalized pain. No high- grade fever or chills. Blood pressure at times staying high. Oral intake is fair. No nausea or vomiting. The patient's CA-19-9 level is going up. The patient also found to have hepatitis C. Family Welfare Social Work Professor following patient with us. OBJECTIVE: Vital Signs: Noted. Neck: Supple. No JVD. Lungs: Few basal crepitations. Heart: S1 and S2 heard. Abdomen: Soft and globular. Bowel sounds present. CAR BUILDER: Alert and awake. Able to move all 4 limbs. LABORATORY DATA: Done yesterday reviewed. Her bilirubin seems to be improving. ASSESSMENT AND PLAN: I am going to stop IV fluid. Continue rest of the treatment. Decrease her Ativan. We will discuss with Dr. Haley about further treatment. Her problems includes the pancreatic mass and elevated CA 99. Hepatitis C. Hypertension. Chronic pain. Gastritis. Hypothyroidism. The patient was terminated from her last pain clinic even when she failed the urine drug screen. I had a lengthy discussion with the patient about the importance of proper behavior, and proper care. I told the patient without that she will not get better. cc: Julio Barnes MD
[2019-07-01] MEDS: M.V.I.-12 10 ML, FOLIC ACID 1 MG, MAGNESIUM SULFATE 1 GM, THIAMINE 100 MG in NS 1,000 ML IV SCH (08:41)
[2019-07-01] MEDS: PRINIVIL PO SCH (08:42)
[2019-07-01] MEDS: SYNTHROID PO SCH (08:42)
[2019-07-01] MEDS: CREON PO SCH ×3 (08:42→17:56)
[2019-07-01] MEDS: LACTULOSE PO SCH (08:43)
[2019-07-01 11:52] LABS: HCV BY PCR SEE COMMENTS
--- NOTE | 2019-07-01 15:24 | GASTROENTEROLOGY PROGRESS NOTE ---
DATE: 07/01/2019 SUBJECTIVE: Patient was asleep at the time of my visit. Her was at the bedside. I did speak with him. Hepatitis C antibody came back reactive and HCV RNA viral load is 73,889. Imaging studies showed probable cirrhosis. Lactulose was started last week. Patient has already seen Dr. Cotter for endoscopic ultrasound regarding possible pancreatic mass. Per 's report, they have a follow up appointment for repeat EUS in the next several months. Patient has been counseled on alcohol cessation. OBJECTIVE: Vital Signs: Temperature 97.6 degrees, pulse 115, respirations 19, blood pressure 154/93. General: Patient was asleep, in no acute distress. LABORATORY: Hematology: WBC 4.30, hemoglobin 10.8, hematocrit 32.6, MCV 106.2, platelets 74,000. Coagulation: Pro time 17.6, INR 1.42 PTT 40.1. Chemistry: Sodium 134, potassium 3.7, chloride 104, CO2 17, BUN 4 creatinine 0.8, glucose 105, calcium 8.3, total bilirubin 2.69, AST 102, ALT 66, alkaline phosphatase 106. CEA on 06/28/2019 was 531. Hepatitis profile showed reactive hepatitis C antibody. HCV RNA is a 73,889. ASSESSMENT AND PLAN: 1. Elevated liver function tests. 2. Probable cirrhosis. 3. New findings of hepatitis C. I have ordered a hepatitis C genotype. 4. Pancreatic mass. She has followed with Dr. Cotter and has been recommended to have a repeat endoscopic ultrasound in 2 months. PLAN: Continue current management. I have strongly advised patient to avoid all alcohol. Creon has been started, also lactulose and we will add Xifaxan twice daily for possible hepatic encephalopathy. Hepatitis C genotype has been ordered. Further plans will be made regarding possibility of hepatitis C treatment. Recommend patient follow up with us in the office after discharge. I have discussed this case with Dr. Haley. Dictated by SHIRA Ruiz for Robert Haley MD cc: SHIRA Romo MD Bharat K. Vakharia, MD MTDD
[2019-07-01] MEDS: PROTONIX IV SCH (17:56)
[2019-07-01] MEDS: SODIUM CHLORIDE 0.9% INJ SCH (17:56)
[2019-07-01] MEDS: XIFAXAN PO SCH (22:13)
[2019-07-02] MEDS: DUONEB (A & A) INH SCH ×4 (03:53→22:00)
[2019-07-02] MEDS ORDERED: DULCOLAX PR ONE (07:01)
[2019-07-02 08:04] LABS: BASO# 0.04 X1000 (0.0-0.2); BASO% 0.3 % (0.0-0.8); EOS# 0.05 X1000 (0.0-0.7); EOS% 0.4 % (0.0-10.0); HEMOGLOBIN 11.7 g/dL (12.0-16.0); IMM GRAN# 0.04 X1000 (0.0-0.04); IMM GRAN% 0.3 % (0.0-0.5); LYMPH# 1.29 X1000 (1.2-3.4); LYMPH% 10.8 % (20.5-51.1); MCH 34.5 PG (27-31); MCHC 34.4 g/dL (33-37); MCV 100.3 FL (81-99); MONO# 1.13 X1000 (0.11-0.59); MONO% 9.5 % (1.7-9.3); MPV 9.9 FL (7.4-10.4); NEUT# 9.35 X1000 (1.4-6.5); NEUT% 78.7 % (42.2-75.2); PLT 128 X1000 (130-400); RBC 3.39 XMIL (4.2-5.4); RDW 17.9 % (11.5-14.5)
[2019-07-02 08:28] LABS: AGAP 13; ALB/GLOB RATIO 0.7; ALBUMIN 2.8 g/dL (3.5-5.0); ALKALINE PHOSPHATASE 121 U/L (32-104); AMYLASE 35 U/L (20-200); BUN 3 mg/dL (8-22); CALCIUM 8.8 mg/dL (8.8-10.2); CHLORIDE 100 mmol/L (98-107); COSMO 265; CREATININE 0.7 mg/dL (0.5-0.9); ESTIMATED GFR > 60; GLUCOSE 139 mg/dL (70-104); GOT 84 U/L (10-30); GPT 54 U/L (10-36); LIPASE 13 U/L (13-60); MAGNESIUM 1.8 mg/dL (1.5-2.7); POTASSIUM 3.6 mmol/L (3.5-5.1); SODIUM 133 mmol/L (136-145); TCO2 20 mmol/L (25-35); TOTAL BILIRUBIN 3.07 mg/dL (0.20-1.00); TOTAL PROTEIN 6.8 g/dL (6.3-8.3)
--- NOTE | 2019-07-02 08:45 | Diag Imaging Result Doc PS360 ---
ABDOMEN FLAT/UPRIGHT - 07/02/2019 INDICATION: pain COMPARISON: 06/27/2019 FINDINGS: There is significant, diffuse hyperinflation of all the bowels. No visible transition point. No free air. Stable surgical clips in the right upper quadrant. IMPRESSION: Nonspecific, diffuse hyperinflation of all the bowels. Likely represents diffuse ileus or distal obstruction. An abdomen pelvis CT is recommended. Electronically signed by Sivakumar Gipson 07/02/2019 8:42 AM
[2019-07-02] MEDS: M.V.I.-12 10 ML, FOLIC ACID 1 MG, MAGNESIUM SULFATE 1 GM, THIAMINE 100 MG in NS 1,000 ML IV SCH (09:19)
[2019-07-02] MEDS: CREON PO SCH ×3 (09:20→18:14)
[2019-07-02] MEDS: XIFAXAN PO SCH ×2 (09:20→20:09)
[2019-07-02] MEDS: LACTULOSE PO SCH (09:20)
[2019-07-02] MEDS: PRINIVIL PO SCH (09:20)
[2019-07-02] MEDS: ATIVAN PO SCH ×2 (09:21→14:39)
[2019-07-02] MEDS: SYNTHROID PO SCH (09:21)
[2019-07-02] MEDS: NORCO-5 PO PRN ×2 (09:21→14:48)
--- NOTE | 2019-07-02 09:42 | Diag Imaging Result Doc PS360 ---
EXAM: CT ABDOMEN/PELVIS W/O CONTRAST 07/02/2019 HISTORY: abd. pain TECHNIQUE: This exam was performed using automated exposure control, adjustment of mA or kV according to patient size, and/or use of iterative reconstruction technique. COMMENT: There are atelectatic changes in both lung bases. There are bilateral pleural effusions which were not present at the time the previous study of 06/05/2019. There is ascites. The liver is somewhat shrunken and nodular in contour consistent with cirrhosis. This is particularly true of the right hepatic lobe. There is a calcification in the right hepatic lobe. The spleen is not enlarged. There our granulomata in the spleen. There are calcifications in the pancreas particularly in the tail and head. The kidneys are without evidence of hydronephrosis or stones. There is gas throughout much of the colon. The stomach is not distended but there is a suggestion of mucosal thickening particularly in the gastric antrum and fundus. The small bowel is slightly distended with gas without evidence of mucosal thickening for the most part. The appendix is not distended. Some of the small bowel loops contain fecalized material in the left mid pelvis. The distal small bowel is not distended. The aorta is not distended. The urinary bladder is slightly distended. There is some diverticulosis in the sigmoid colon without evidence of active diverticulitis. There is what appears to be an old fracture of the ninth rib on the right posterior laterally. No other acute bony abnormalities are present. IMPRESSION: 1. Bilateral pleural effusions and ascites. Cirrhosis. 2. The possibility of gastritis cannot be excluded. 3. Chronic pancreatitis changes. 4. Ileus. The possibility of partial small bowel obstruction cannot be excluded. Electronically signed by Scooby Hernandez 07/02/2019 9:40 AM
[2019-07-02] MEDS: ZOFRAN IV PRN ×3 (09:47→21:39)
[2019-07-02] MEDS ORDERED: MILK OF MAGNESIA PO ONE (12:45)
--- NOTE | 2019-07-02 13:59 | Diag Imaging Result Doc PS360 ---
US ABD PARACENTESIS W S/I - 07/02/2019 INDICATION: ascites COMPARISON: CT from 07/02/2019 FINDINGS: There is only minimal ascites. Also this is up in the chest, at the liver dome. Paracentesis cannot be performed. IMPRESSION: Trace ascites. No paracentesis performed. Electronically signed by Sivakumar Gipson 07/02/2019 1:57 PM
[2019-07-02] MEDS: PROTONIX IV SCH (14:41)
[2019-07-02] MEDS: SODIUM CHLORIDE 0.9% INJ SCH (14:41)
[2019-07-02] MEDS ORDERED: ATIVAN PO PRN (17:41)
--- NOTE | 2019-07-02 18:14 | GASTROENTEROLOGY PROGRESS NOTE ---
DATE: 07/02/2019 SUBJECTIVE: Patient is more awake today than yesterday. Per her report she has not eaten. The patient does have some abdominal distention. She has had imaging studies today. Abdominal x-ray showed nonspecific diffuse hyperinflation of the bowels possible ileus versus obstruction. She then had a CT scan of abdomen and pelvis that showed bilateral pleural effusions. Noted ascites and cirrhosis, possible gastritis, chronic pancreatic changes and ileus versus possible partial small bowel obstruction. The patient's states she has received a suppository. She has not had a bowel movement documented since June 29. OBJECTIVE: Vital Signs: Temperature 98.5 degrees, pulse 110, respirations 16, blood pressure 122/76. General: Patient is awake, she still does complain of abdominal pain. She does not have an appetite. Abdomen: Soft but distended. Respiratory: Lung sounds essentially clear. LABORATORY: Hematology. WBC 11.90, hemoglobin 11.7, hematocrit 34.0, MCV 100.3, platelet 128,000. Chemistry. Sodium 133, potassium 3.6, chloride 100, CO2 20, BUN 3, creatinine 0.7, glucose 139, total bilirubin 3.07, AST 84, ALT 54, alkaline phosphatase 121, ammonia 62. Her TSH was elevated. She is on Synthroid. ASSESSMENT AND PLAN: 1. Elevated liver function tests have improved some. 2. Probable cirrhosis. 3. Hepatitis C waiting on hepatitis C genotype. 4. Pancreatic mass. She is followed with Dr. Cotter in [place] for endoscopic ultrasound is recommended to have a repeat endoscopic ultrasound in 2 months. Recommend they continue to follow with his recommendations. 5. Ascites. Patient has been seen by Dr. Barnes today. Imaging studies were reviewed. Also has been ordered an ultrasound paracentesis. We will wait on those results. Also waiting on hepatitis C genotype. 6. Alcohol abuse. Unfortunately patient had continued to drink alcohol since her last hospitalization, have strongly recommended avoiding all alcohol. 7. Hepatic encephalopathy, ammonia level was elevated. Patient is receiving lactulose and I have added Xifaxan. 8. Ileus versus partial small bowel obstruction. Patient has received a Dulcolax suppository. Continue lactulose but add a dose of milk of magnesia today. Further plans to be made according to her response and findings from her ultrasound paracentesis that has been ordered. I have discussed this case with Dr. Haley. Dictated by SHIRA Ruiz for Robert Haley MD cc: SHIRA Romo MD Bharat K. Vakharia, MD
[2019-07-02 18:56] LABS: URINE SOURCE CATH
--- NOTE | 2019-07-02 18:58 | PROGRESS NOTE ---
DATE: 07/02/2019 SUBJECTIVELY: Ms. Agrawal is not doing well. The patient is complaining of pain in the abdomen and the back. The patient is getting pain medications for comfort. The patient does not have bowel movement. She denied any nausea or vomiting. No high-grade fever or chills. We are giving her lactulose. The patient was started on Xifaxan. We also give her Dulcolax suppository. I did a CT scan of the abdomen and pelvis and results reviewed. No cough or expectoration. OBJECTIVE: Vital signs: Noted. Neck: Supple. No JVD. Lungs: Bibasilar crepitation. Heart: S1 and S2 heard. Abdomen: Soft, distended. Bowel sounds hypoactive. The patient does have tympanic note. Extremities: No cyanosis, clubbing. No acute DVT. BLENDER: Alert, awake able to move all 4 limbs. LABORATORY DATA: Done today: WBC count 11.9, hemoglobin 11.7, hematocrit 34, platelet 128,000. Electrolytes result reviewed. Bilirubin 3.07, AST 84, ALT 54. ASSESSMENT AND DISCUSSION: The patient does have multiple complex problems including possible alcoholic hepatitis. Patient has cirrhosis of the liver, hepatitis C, ileus. I was thinking to get acidic fluid and check for cytology and bacterial and infectious etiology, but fluid was not enough for to have chronic pain. I am going to stopped [place] will try Dilaudid, a small amount. I am going to decrease her Ativan. Continue rest of the treatment. Close observation. Overall plan discussed at length with the patient's family and they are in agreement. Her other problems include: 1. Hypertension. 2. Hypothyroidism. 3. Gastritis. cc: Julio Barnes MD
[2019-07-02 19:34] LABS: BILIRUBIN URINE NEGATIVE (NEGATIVE); BLOOD URINE NEGATIVE (NEGATIVE); COLOR YELLOW; GLUCOSE URINE NEGATIVE (NEGATIVE); KETONE URINE NEGATIVE (NEGATIVE); LEUKOCYTES URINE NEGATIVE (NEGATIVE); NITRITE URINE NEGATIVE (NEGATIVE); PROTEIN URINE NEGATIVE (NEGATIVE); SP GRAVITY URINE 1.015; TURBIDITY URINE CLEAR (CLEAR); UROBILINOGEN URINE 3 mg/dL (NORMAL)
[2019-07-02 19:36] LABS: UR EPITHELIAL CELLS <10 /HPF (<10); URINE BACTERIA NEGATIVE /HPF; URINE RBC <10 /HPF (<10); URINE WBC <10 /HPF (<10)
[2019-07-03] MEDS: DUONEB (A & A) INH SCH ×4 (04:01→22:40)
[2019-07-03] MEDS: SYNTHROID PO SCH (06:45)
--- NOTE | 2019-07-03 06:52 | Diag Imaging Result Doc PS360 ---
CHEST/ABD TUBE PLACEMENT - 07/03/2019 INDICATION: confirm placement COMPARISON: 07/02/2019 FINDINGS: There is a nasogastric tube in good position in the stomach. IMPRESSION: Nasogastric tube in good position in the stomach. Electronically signed by Sivakumar Gipson 07/03/2019 6:50 AM
[2019-07-03 08:13] LABS: BASO# 0.01 X1000 (0.0-0.2); BASO% 0.1 % (0.0-0.8); HEMATOCRIT 37.3 % (37.0-47.0); HEMOGLOBIN 12.6 g/dL (12.0-16.0); IMM GRAN# 0.04 X1000 (0.0-0.04); IMM GRAN% 0.3 % (0.0-0.5); LYMPH# 0.81 X1000 (1.2-3.4); LYMPH% 5.2 % (20.5-51.1); MCH 34.1 PG (27-31); MCHC 33.8 g/dL (33-37); MCV 100.8 FL (81-99); MONO# 1.96 X1000 (0.11-0.59); MONO% 12.7 % (1.7-9.3); MPV 9.9 FL (7.4-10.4); NEUT# 12.61 X1000 (1.4-6.5); NEUT% 81.7 % (42.2-75.2); PLT 162 X1000 (130-400); RDW 18.2 % (11.5-14.5); WBC 15.43 X1000 (4.8-10.8)
[2019-07-03 08:33] LABS: INR 1.39; PROTIME 17.3 Seconds (11.0-16.0)
[2019-07-03] MEDS: XIFAXAN PO SCH ×2 (08:59→22:48)
[2019-07-03] MEDS: CREON PO SCH ×3 (08:59→17:50)
[2019-07-03] MEDS: M.V.I.-12 10 ML, FOLIC ACID 1 MG, MAGNESIUM SULFATE 1 GM, THIAMINE 100 MG in NS 1,000 ML IV SCH (09:00)
[2019-07-03] MEDS: PRINIVIL PO SCH (09:00)
[2019-07-03] MEDS: LACTULOSE PO SCH ×3 (09:01→23:59)
[2019-07-03 09:08] LABS: AGAP 12; ALB/GLOB RATIO 0.8; ALBUMIN 2.8 g/dL (3.5-5.0); ALKALINE PHOSPHATASE 119 U/L (32-104); BUN 6 mg/dL (8-22); CALCIUM 8.6 mg/dL (8.8-10.2); CHLORIDE 101 mmol/L (98-107); COSMO 269; CREATININE 0.9 mg/dL (0.5-0.9); ESTIMATED GFR > 60; GLUCOSE 164 mg/dL (70-104); GOT 81 U/L (10-30); GPT 46 U/L (10-36); POTASSIUM 3.6 mmol/L (3.5-5.1); SODIUM 134 mmol/L (136-145); TCO2 21 mmol/L (25-35); TOTAL BILIRUBIN 2.79 mg/dL (0.20-1.00); TOTAL PROTEIN 6.3 g/dL (6.3-8.3)
[2019-07-03] MEDS: ROCEPHIN 1 GM in NS 50 ML IV SCH (09:09)
[2019-07-03] MEDS ORDERED: LACTULOSE PO ONE (13:15)
[2019-07-03] MEDS: PROTONIX IV SCH (15:37)
[2019-07-03] MEDS: SODIUM CHLORIDE 0.9% INJ SCH (15:37)
[2019-07-03] MEDS ORDERED: DULCOLAX PR ONE ×2 (18:03→23:15)
--- NOTE | 2019-07-03 20:18 | GASTROENTEROLOGY PROGRESS NOTE ---
DATE: 07/03/2019 SUBJECTIVE: At the time of my evaluation today, patient was unresponsive. Her and other family members are at the bedside. There has been an NG tube placed to low intermittent suction. There is only a small amount of gastric secretions noted in the canister. It was noted that patient had an Ativan dose last evening. OBJECTIVE: Vital Signs: Temperature 97.7 degrees, pulse 120, respirations 16, blood pressure 133/93. General: Patient was with eyes closed. She did not respond to my stimulus at the time of my evaluation. Patient's states she has not responded since early this morning. Abdomen: Soft. Positive bowel sounds. LABORATORY: Hematology: WBC 15.43, hemoglobin 12.6, hematocrit 37.3, MCV 100.8. Coagulation: Protime 17.3, INR 1.39, PTT 35.7. Chemistry: Sodium 134, potassium 3.6, chloride 101, CO2 21, BUN 6, creatinine 0.9, glucose 164, total bilirubin 2.79, AST 81, ALT 46, alkaline phosphatase 129, albumin 2.8. CA19-9 is 531, drawn on 06/28/2019. The patient had an attempted paracentesis yesterday, but not enough fluid for collection. ASSESSMENT AND PLAN: 1. Elevated liver function tests, with some improvement noted. 2. Probable cirrhosis. 3. Hepatitis C. Hepatitis C genotype has been ordered. 4. Pancreatic mass. Patient has seen Dr. Cotter in [place] for endoscopic ultrasound. She has a followup appointment with him for repeat procedure in 2 months. Would recommend continuing with that followup for now. 5. Mild ascites. Patient did not have enough fluid for paracentesis per radiology report yesterday. 6. Hepatitis C. Waiting on hepatitis C genotype. Unfortunately, the patient had been using alcohol still prior to her admission. 7. Hepatic encephalopathy. Patient had been started on lactulose and Xifaxan. She has had a decrease in her mentation status today. She has a nasogastric tube to low intermittent suction. Patient is unresponsive today. We will give lactulose 30 mL by the nasogastric tube today. Recommend to hold all narcotics and sedation. 8. Ileus versus partial small bowel obstruction. Patient has received a Dulcolax suppository and Milk of Magnesia yesterday. Per intake and output report, there has been a bowel movement since then. We will continue to monitor. Further plans will be made as needed. I have discussed this case with Dr. Haley. Dictated by SHIRA Ruiz for Robert Haley MD cc: SHIRA Romo MD Bharat K. Vakharia, MD [facility]
--- NOTE | 2019-07-03 20:48 | PROGRESS NOTE ---
DATE: 07/03/2019 SUBJECTIVE: Ms. Hines is not doing well. When I saw her this morning, the patient was restless, disoriented. Nurses reported she had some vomiting last night. The patient had abdominal distention. I ordered NG tube placement. We did x-ray of the abdomen which did reveal good placement of the NG tube in the stomach. At times, patient was tachycardic. No high-grade fever or chills. The patient was much more disoriented and uncooperative for detailed exam. Patient was also restless. OBJECTIVE: Vital signs noted. Blood pressure 133/93, pulse 120, respirations 16, temperature 97.7 degrees. Pupils reacting to light.Neck: Supple. No JVD. Lungs: Bibasilar crepitations. Heart: S1 and S2. Tachycardia. Abdomen: Soft, globular. Bowel sounds present. Bowel sounds hypoactive. Extremities: No cyanosis, clubbing. No acute DVT. CIRCULATION MAN: Patient is disoriented, uncooperative for detailed exam. Able to move all 4 limbs. Patient's problems includes delirium hepatitic encephalopathy. I repeated the ammonia level and it went up to 129. Her WBC count did reveal leukocytosis. PT/INR 1.39. Potassium 3.6. Other lab data also reviewed. CONSIDERATION: Hepatic encephalopathy, cirrhosis of the liver. The patient does have history of pancreatic mass, hepatitis C. I re-evaluated the patient this evening. The patient's family members were present. Discussed poor prognosis. We will try to give her lactulose through the NG tube. Dr. Haley following patient with us. Nurse talked to Dr. Haley on phone and recommendation noted. cc: Julio Barnes MD
[2019-07-04] MEDS: LACTULOSE PO SCH ×3 (02:53→10:17)
[2019-07-04] MEDS: DUONEB (A & A) INH SCH ×4 (04:07→22:12)
[2019-07-04] MEDS: SYNTHROID PO SCH (06:22)
[2019-07-04 07:42] LABS: HEMOGLOBIN 12.1 g/dL (12.0-16.0); RBC 3.47 XMIL (4.2-5.4); WBC 12.98 X1000 (4.8-10.8)
[2019-07-04 07:43] LABS: HEMATOCRIT 35.9 % (37.0-47.0); MCH 34.9 PG (27-31); MCHC 33.7 g/dL (33-37); MCV 103.5 FL (81-99); MPV 9.6 FL (7.4-10.4); NEUT% 70.4 % (42.2-75.2); PLT 131 X1000 (130-400)
[2019-07-04 07:44] LABS: BASO# 0.09 X1000 (0.0-0.2); BASO% 0.7 % (0.0-0.8); EOS# 0.07 X1000 (0.0-0.7); EOS% 0.5 % (0.0-10.0); IMM GRAN# 0.05 X1000 (0.0-0.04); IMM GRAN% 0.4 % (0.0-0.5); LYMPH# 1.69 X1000 (1.2-3.4); MONO# 1.95 X1000 (0.11-0.59); NEUT# 9.13 X1000 (1.4-6.5)
[2019-07-04 08:11] LABS: AGAP 12; ALB/GLOB RATIO 0.9; ALKALINE PHOSPHATASE 111 U/L (32-104); BUN 11 mg/dL (8-22); CALCIUM 8.9 mg/dL (8.8-10.2); CHLORIDE 102 mmol/L (98-107); COSMO 272; CREATININE 0.9 mg/dL (0.5-0.9); ESTIMATED GFR > 60; GLUCOSE 150 mg/dL (70-104); GOT 92 U/L (10-30); GPT 44 U/L (10-36); POTASSIUM 3.9 mmol/L (3.5-5.1); SODIUM 135 mmol/L (136-145); TCO2 21 mmol/L (25-35); TOTAL BILIRUBIN 2.34 mg/dL (0.20-1.00); TOTAL PROTEIN 6.5 g/dL (6.3-8.3)
--- NOTE | 2019-07-04 08:43 | PROGRESS NOTE ---
DATE: 07/04/2019 SUBJECTIVE: Ms. Agrawal is doing fair. The patient did have good bowel movement after lactulose. No high-grade fever or chills. The patient is tachycardic at times. No nausea or vomiting. Her mentation is poor. OBJECTIVE: Vital signs noted. Neck is supple. No JVD. Sclerae icteric. Lungs decreased air entry both the bases. Cardiovascular: S1 and S2, tachycardia. Abdomen: Soft, globular. Distention is less. Extremities: No cyanosis, clubbing. No acute DVT. 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 CONSIDERATION: 1. Hepatitic encephalopathy and Hepatitis C. I am going to check ammonia level, electrolytes. Continue hydration. Patient does have prolonged pro-time, more suggestive of chronic liver failure. I had a lengthy discussion with the patient's family about overall poor prognosis. 2. History of alcohol abuse. 3. Hypothyroidism. PLAN: Overall plan discussed with the patient's family. After reviewing labs, we will make necessary recommendations. I am going to discuss with family about end of life management. cc: Julio Barnes MD
[2019-07-04] MEDS: ROCEPHIN 1 GM in NS 50 ML IV SCH (10:15)
[2019-07-04] MEDS: M.V.I.-12 10 ML, FOLIC ACID 1 MG, MAGNESIUM SULFATE 1 GM, THIAMINE 100 MG in NS 1,000 ML IV SCH (10:15)
[2019-07-04] MEDS: CREON PO SCH (10:17)
[2019-07-04] MEDS: XIFAXAN PO SCH ×2 (10:17→20:09)
[2019-07-04] MEDS: PRINIVIL PO SCH (10:17)
[2019-07-04] MEDS: PROTONIX IV SCH (13:21)
[2019-07-04] MEDS: SODIUM CHLORIDE 0.9% INJ SCH (13:21)
[2019-07-04] MEDS: ATIVAN IV PRN (19:36)
--- NOTE | 2019-07-04 20:24 | GASTROENTEROLOGY PROGRESS NOTE ---
DATE: 07/04/2019 SUBJECTIVE: Ms. Agrawal is more responsive today. She was responsive to calling her name and painful stimuli. Yesterday she was more obtunded. She is not, however, responding to questions. Family members are around her bedside. OBJECTIVE: Vitals: Temperature 98.7 degrees, heart rate varies from 109 to 127, breathing is 19, blood pressure is 151/83. Abdomen: Slightly distended but soft, nontender. Bowel sounds are audible. LABORATORIES: Reviewed which showed WBC of 12.98 down from 15.43. Hemoglobin is 12.1, hematocrit 25.9, MCV 103.5. Platelets were 131. Sodium 135, potassium 3.9, chloride 102, bicarb 21, BUN is 11, creatinine 0.9, AST 92, ALT 44, total alkaline phosphate 111, total bilirubin 2.34, total protein 6.5, albumin 3.0. IMPRESSION: 1. Hepatic encephalopathy. 2. Chronic liver disease secondary to alcoholic liver disease and chronic hepatitis C. 3. Cirrhosis of the liver with portal hypertension. 4. Hypothyroidism. 5. Pancreatic mass most likely cancer of pancreas. DISCUSSION AND PLAN: The patient has altered mental status secondary to combination of hepatic encephalopathy and secondary to chronic liver disease. Her ammonia level was high yesterday, has come down to 50 today, but she appears to be in withdrawal as well. She is tachycardic. She appears to be in withdrawal as well. She has history of hypothyroidism, although she is on thyroid replacement. She has multiple factors precipitating her hepatic encephalopathy. She has responded to some degree with lactulose after she has had a bowel movement. She somewhat better, but she is still not conversing and not alert enough. At this point, no new suggestions. I would continue the same. That is lactulose daily and maintain her electrolytes, continue antibiotic and if possible avoid narcotics; however, she needs medication for delirium tremens precaution. Yesterday I had a lengthy discussion with her sisters, and today I had a lengthy discussion with her and her sisters as well. I have explained to them that her condition is critical and recovery is guarded. At this point, we would continue supportive care and hope for the best. The had related to me that he has made her do not resuscitate at this point. We will continue to follow, and depending on her progress, further plans will be made. cc: MD Julio Washington MD
[2019-07-04 21:42] LABS: HEPATITIS C GENOTYPE SEE COMMENTS
[2019-07-05] MEDS: ATIVAN IV PRN (01:27)
[2019-07-05] MEDS: DUONEB (A & A) INH SCH ×4 (03:31→23:02)
[2019-07-05] MEDS: SYNTHROID PO SCH (07:03)
[2019-07-05] MEDS: M.V.I.-12 10 ML, FOLIC ACID 1 MG, MAGNESIUM SULFATE 1 GM, THIAMINE 100 MG in NS 1,000 ML IV SCH (10:26)
[2019-07-05] MEDS: ROCEPHIN 1 GM in NS 50 ML IV SCH (10:26)
[2019-07-05] MEDS: XIFAXAN PO SCH (10:27)
[2019-07-05] MEDS: PRINIVIL PO SCH (10:27)
--- NOTE | 2019-07-05 10:58 | PROGRESS NOTE ---
DATE: 07/05/2018 SUBJECTIVE: Ms. Agrawal is doing fair. The patient is awake, but confused, restless and disoriented. No high-grade fever or chills. Yesterday she was pulling her IV and NG tube. I had to give her some Ativan and patient quieted down. No vomiting. The patient had rectal tube. OBJECTIVE: Vital Signs: Her vital signs noted. Neck: Neck is supple. No JVD. Eyes: The patient has icteric sclerae. Lungs: Decreased air entry both the bases. CVS: S1 and S2. Tachycardia. Abdomen: Soft, globular. Bowel sounds present. 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 Her blood work done yesterday reviewed. We are supplementing some IV fluid and nutrition. The patient is on IV antibiotics. I had lengthy discussion with the patient's family about overall poor prognosis. They understood and agreed. I appreciate Dr. Hull help managing patient. We will continue supportive care. Her problems includes encephalopathy multifactorial, hypertension, hepatitis C, history of diabetes, alcohol abuse. cc: Julio Barnes MD MTDD
[2019-07-05] MEDS: SODIUM CHLORIDE 0.9% INJ SCH (14:30)
[2019-07-05] MEDS: PROTONIX IV SCH (14:30)
[2019-07-05] MEDS: LACTULOSE PO SCH (17:56)
[2019-07-05] MEDS: CLINIMIX E 4.25%-5% SOLUTION 1,000 ML IV SCH (17:56)
[2019-07-05] MEDS ORDERED: ROXANOL CONC. LIQUID PO PRN (18:30)
--- NOTE | 2019-07-05 20:16 | GASTROENTEROLOGY PROGRESS NOTE ---
DATE: 07/05/2019 SUBJECTIVE: Rounds were made with Dr. Haley. At the time of our visit the patient was essentially unresponsive. She did move her extremities around in the bed, but she was not alert. She had received Ativan earlier in the morning. Dr. Haley spoke with the and daughter, and other family members who were at the bedside. They had decided to make a Do Not Resuscitate/Allow Natural . The patient's is wanting mainly comfort measures. We have talked to them about options. OBJECTIVE: Vital signs: Temperature 98 degrees, pulse 116, respirations 14, blood pressure 161/105. On physical exam the patient was with eyes closed, did not really respond but did move around in the bed. LABORATORY DATA: Hematology: WBC 12.98, hemoglobin 12.1, hematocrit 35.9, MCV 103.5. Coagulation: Pro time 17.3, INR 1.39, PTT 35.7. Chemistry: Sodium 135, potassium 3.9, chloride 102, CO2 is 21, BUN 11, creatinine 0.9, total bilirubin 2.34, AST 92, ALT 44, alkaline phosphatase 111. Ammonia 50. ASSESSMENT AND PLAN: 1. Hepatic encephalopathy. Continue lactulose through nasogastric tube. 2. Chronic liver disease, secondary to alcoholic liver disease and hepatitis C. 3. Cirrhosis of the liver. 4. Pancreatic mass, possibility of pancreatic cancer. Patient had already been seen by Dr. Cotter. Recommend followup with him as recommended. The family is deciding on comfort measures, Do Not Resuscitate/Allow Natural . We have discussed about possible nasogastric tube for feeding. We will clamp the nasogastric tube for 4 hours and check residual. If greater than 150 mL, restart low intermittent suction. After we left, Dr. Barnes had talked with the nurse about starting Clinimix. That can be done and then further plans can be made as needed regarding her nutrition. We will continue to follow and further plans will be made as needed. The patient was also seen by Dr. Haley. Dictated by SHIRA Ruiz for Robert Haley MD cc: SHIRA Romo MD Bharat K. Vakharia, MD
[2019-07-06] MEDS: XIFAXAN PO SCH ×3 (00:46→22:34)
[2019-07-06] MEDS: DUONEB (A & A) INH SCH ×4 (03:01→22:43)
[2019-07-06] MEDS: CLINIMIX E 4.25%-5% SOLUTION 1,000 ML IV SCH ×2 (04:35→22:34)
[2019-07-06] MEDS: SYNTHROID PO SCH (06:04)
[2019-07-06] MEDS: M.V.I.-12 10 ML, FOLIC ACID 1 MG, MAGNESIUM SULFATE 1 GM, THIAMINE 100 MG in NS 1,000 ML IV SCH (10:40)
[2019-07-06] MEDS: ROCEPHIN 1 GM in NS 50 ML IV SCH (10:40)
[2019-07-06] MEDS: LACTULOSE PO SCH (11:02)
[2019-07-06] MEDS: PRINIVIL PO SCH (11:02)
--- NOTE | 2019-07-06 13:48 | PROGRESS NOTE ---
DATE: 07/06/2019 VITAL SIGNS: Temperature 97.9 degrees, heart rate 97, respiration 18, blood pressure 154/84, O2 saturation on room air 98%. The patient is a 58-year-old white female with hepatitis C, history of alcoholism, hepatic encephalopathy, pancreatic mass, possible cancer. She is DNR. Discussion was made with the family concerning nutrition. The family is undecided. IVs were attempted yesterday and family decided not to attempt any more. Discussion was made concerning tube feedings. The family wants to wait at this time. Medications were given only per NG tube. PLAN: Do Not Resuscitate and comfort measures, continue supportive care with medications only. cc: MD Julio Sheppard MD
[2019-07-06] MEDS: PROTONIX IV SCH (14:13)
[2019-07-06] MEDS: SODIUM CHLORIDE 0.9% INJ SCH (14:13)
[2019-07-06] MEDS ORDERED: MOTRIN LIQUID PO ONE (16:35)
[2019-07-07] MEDS: DUONEB (A & A) INH SCH ×4 (03:20→22:56)
[2019-07-07] MEDS: HUMALOG SUBQ SCH ×4 (06:32→21:25)
[2019-07-07 08:33] LABS: BASO# 0.04 X1000 (0.0-0.2); BASO% 0.6 % (0.0-0.8); EOS# 0.15 X1000 (0.0-0.7); EOS% 2.4 % (0.0-10.0); HEMATOCRIT 32.2 % (37.0-47.0); HEMOGLOBIN 10.6 g/dL (12.0-16.0); LYMPH% 17.5 % (20.5-51.1); MCH 33.8 PG (27-31); MCHC 32.9 g/dL (33-37); MCV 102.5 FL (81-99); MONO# 0.92 X1000 (0.11-0.59); MONO% 14.6 % (1.7-9.3); MPV 9.1 FL (7.4-10.4); NEUT# 4.08 X1000 (1.4-6.5); NEUT% 64.9 % (42.2-75.2); PLT 120 X1000 (130-400); RBC 3.14 XMIL (4.2-5.4); RDW 18.1 % (11.5-14.5); WBC 6.29 X1000 (4.8-10.8)
[2019-07-07 08:43] LABS: AGAP 13; ALB/GLOB RATIO 0.8; ALBUMIN 2.8 g/dL (3.5-5.0); ALKALINE PHOSPHATASE 93 U/L (32-104); BUN 6 mg/dL (8-22); CALCIUM 8.5 mg/dL (8.8-10.2); CHLORIDE 101 mmol/L (98-107); COSMO 273; CREATININE 0.8 mg/dL (0.5-0.9); ESTIMATED GFR > 60; GLUCOSE 118 mg/dL (70-104); GOT 82 U/L (10-30); GPT 35 U/L (10-36); MAGNESIUM 1.8 mg/dL (1.5-2.7); POTASSIUM 2.8 mmol/L (3.5-5.1); SODIUM 137 mmol/L (136-145); TCO2 23 mmol/L (25-35); TOTAL PROTEIN 6.2 g/dL (6.3-8.3)
--- NOTE | 2019-07-07 09:35 | PROGRESS NOTE ---
DATE: 07/07/2019 VITAL SIGNS: Temperature 98 degrees axillary, heart rate 102, respirations 16, blood pressure 162/91, O2 saturation on room air 97%. LABORATORY DATA: Hemoglobin 10.6, hematocrit 32.2, white blood count 6300, with 65% neutrophils. Sodium 137, potassium 2.8, BUN 6, creatinine 0.8, glucose 118. Total bilirubin 2.1, AST 82, ALT 35, total protein 6.2, albumin 2.8. PLAN: Robaxin per NG for back pain. Family does not want to give any mind-altering drugs, even though morphine is ordered. Discussion was made about hospice, and family wants to wait at this time. Potassium will be corrected with liquid per NG. cc: MD Julio Sheppard MD
[2019-07-07] MEDS: ROCEPHIN 1 GM in NS 50 ML IV SCH (10:52)
[2019-07-07] MEDS: M.V.I.-12 10 ML, FOLIC ACID 1 MG, MAGNESIUM SULFATE 1 GM, THIAMINE 100 MG in NS 1,000 ML IV SCH (10:53)
[2019-07-07] MEDS: PRINIVIL PO SCH (11:13)
[2019-07-07] MEDS: ROBAXIN PO SCH ×3 (11:13→21:26)
[2019-07-07] MEDS: MOTRIN LIQUID PO PRN ×3 (11:13→23:18)
[2019-07-07] MEDS: SYNTHROID PO SCH (11:14)
[2019-07-07] MEDS: LACTULOSE PO SCH (11:14)
[2019-07-07] MEDS: XIFAXAN PO SCH ×3 (11:14→21:25)
[2019-07-07] MEDS ORDERED: POTASSIUM CHLORIDE 10% LIQUID PO ONE (12:15)
[2019-07-07] MEDS: CLINIMIX E 4.25%-5% SOLUTION 1,000 ML IV SCH (14:22)
[2019-07-07] MEDS: PROTONIX IV SCH (14:23)
[2019-07-07] MEDS: SODIUM CHLORIDE 0.9% INJ SCH (14:23)
[2019-07-07] MEDS: POTASSIUM CHLORIDE 10% LIQUID PO SCH ×2 (19:41→21:25)
[2019-07-07] MEDS ORDERED: ROBAXIN PO SCH (21:00)
[2019-07-08] MEDS: DUONEB (A & A) INH SCH ×4 (03:20→23:21)
[2019-07-08] MEDS: MOTRIN LIQUID PO PRN ×2 (03:50→19:06)
[2019-07-08] MEDS: HUMALOG SUBQ SCH ×4 (06:17→21:24)
[2019-07-08] MEDS: CLINIMIX E 4.25%-5% SOLUTION 1,000 ML IV SCH ×2 (06:18→13:15)
[2019-07-08] MEDS ORDERED: POTASSIUM CHLORIDE 20% LIQUID PO ONE (06:51)
--- NOTE | 2019-07-08 07:12 | PROGRESS NOTE ---
DATE: 07/08/2019 SUBJECTIVE: Ms. Agrawal is doing better, much more alert, awake, answering questions fairly well. She denied any fever or chills. Complaining of low back pain. No nausea or vomiting. The patient still has NG tube. Her rectal tube was removed. The patient was in herpetic encephalopathy. Seems to be doing better. No nausea or vomiting. History part is limited. OBJECTIVE: Vital Signs: Noted. Neck: Supple. No JVD. Lungs: Bilateral good air entry present. Decreased air entry at both the bases. CVS: S1 and S2 heard. Abdomen: Soft, globular. Bowel sounds present. Mild distention. APPLICATION DBA: Alert, awake, able to move all 4 limbs. LABORATORY DATA: Yesterday, hemoglobin 10.6, hematocrit 32.2, WBC count 6.29, platelet count 120,000. Her potassium was 2.8. Blood sugar 206. The patient was getting Clinimix. I started her on sliding scale insulin. ASSESSMENT: Her problems includes cirrhosis of the liver, hepatic encephalopathy (improving). I am going to check ammonia level. The patient seems to have some ascites, active hepatitis C, hypertension, hypothyroidism. PLAN: My plan is to get abdominal x-ray. Continue lactulose. I think the patient will be benefited from Clinimix. Will supplement electrolytes accordingly. Overall plan and prognosis discussed with the family, and they are in agreement. cc: Julio Barnes MD
--- NOTE | 2019-07-08 09:56 | Diag Imaging Result Doc PS360 ---
ABDOMEN FLAT/UPRIGHT - 07/08/2019 INDICATION: pain COMPARISON: 07/03/2019 FINDINGS: Detail is poor. There is a stable nasogastric tube in the stomach. There is probably mild constipation. There is overall decrease in the extent of indeterminate gas-distended bowel loops. No free air. Stable surgical clips in the right upper quadrant. IMPRESSION: Improvement in the indeterminate gas-distended bowel loops. Electronically signed by Sivakumar Gipson 07/08/2019 9:53 AM
[2019-07-08] MEDS: POTASSIUM CHLORIDE 10% LIQUID PO SCH ×2 (09:57→22:13)
[2019-07-08] MEDS: XIFAXAN PO SCH ×2 (09:58→22:14)
[2019-07-08] MEDS: PRINIVIL PO SCH (09:58)
[2019-07-08] MEDS: ROBAXIN PO SCH ×2 (09:58→22:14)
[2019-07-08] MEDS: SYNTHROID PO SCH (09:58)
[2019-07-08] MEDS: LACTULOSE PO SCH (10:00)
[2019-07-08] MEDS: ROCEPHIN 1 GM in NS 50 ML IV SCH (10:20)
[2019-07-08] MEDS: M.V.I.-12 10 ML, FOLIC ACID 1 MG, MAGNESIUM SULFATE 1 GM, THIAMINE 100 MG in NS 1,000 ML IV SCH ×3 (10:20→13:16)
[2019-07-08] MEDS ORDERED: NS 250 ML ONE (11:28)
[2019-07-08 12:07] LABS: AGAP 12; ALB/GLOB RATIO 0.8; ALBUMIN 2.9 g/dL (3.5-5.0); ALKALINE PHOSPHATASE 86 U/L (32-104); BUN 5 mg/dL (8-22); CALCIUM 8.2 mg/dL (8.8-10.2); CHLORIDE 102 mmol/L (98-107); COSMO 273; CREATININE 0.7 mg/dL (0.5-0.9); ESTIMATED GFR > 60; GLUCOSE 141 mg/dL (70-104); GOT 68 U/L (10-30); GPT 31 U/L (10-36); POTASSIUM 3.1 mmol/L (3.5-5.1); SODIUM 137 mmol/L (136-145); TCO2 23 mmol/L (25-35); TOTAL BILIRUBIN 2.02 mg/dL (0.20-1.00); TOTAL PROTEIN 6.4 g/dL (6.3-8.3)
--- NOTE | 2019-07-08 14:05 | GASTROENTEROLOGY PROGRESS NOTE ---
DATE: 07/08/2019 SUBJECTIVE: At the time of my visit, patient was about to receive a peripherally-inserted central catheter line. She had lost her peripheral IV. She is more alert today than she was on Monday. She did answer my questions. She has an NG tube that is currently clamped. Per nurse report, they have had some high residuals during the evening and night time. Patient is asking for food; she has tolerated some liquids. OBJECTIVE: Vital Signs: Temperature 97.9 degrees, pulse 109, respirations 19, blood pressure 118/81. General: The patient was more awake. She was alert at the time of my visit. Abdomen: With some distention/ascites, otherwise soft and nontender at present time. LABORATORY: Hematology: WBC 6.29, hemoglobin 10.6, hematocrit 32.2. MCV 102.5, platelet 120. Chemistry: Sodium 137, potassium 3.1 chloride 102, CO2 of 23. BUN 5 creatinine 0.7, glucose 141, total bilirubin 2.02. AST 68, ALT 31, alkaline phosphatase 86, ammonia 68. ASSESSMENT AND PLAN: 1. Hepatic encephalopathy. Continue current medications. Use nasogastric tube if needed. 2. Patient is receiving peripherally-inserted central catheter line for Clinimix. 3. Chronic liver disease/cirrhosis of the liver secondary to alcoholic liver disease and hepatitis C. 4. Pancreatic mass. Recommend them following back with Dr. Cotter as recommended. 5. Nutritional requirements: Patient is more awake today. They can see if she will take anything by mouth. If she continues to be more awake and alert and is able to eat and take her medications by mouth, her nasogastric tube can be removed when appropriate. We will continue to follow and further plans will be made. No family was at the bedside at the time on my visit because patient was receiving a peripherally-inserted central catheter line. I have discussed this case with Dr. Haley. Further plans to be made as needed. Dictated by SHIRA Ruiz for Robert Haley MD cc: SHIRA Romo MD Bharat K. Vakharia, MD
[2019-07-08 15:28] LABS: INR 1.48; PROTIME 18.2 Seconds (11.0-16.0)
[2019-07-08] MEDS: SODIUM CHLORIDE 0.9% INJ SCH (16:20)
[2019-07-08] MEDS: PROTONIX IV SCH (16:20)
[2019-07-09] MEDS: MOTRIN LIQUID PO PRN ×2 (02:33→18:36)
[2019-07-09] MEDS: DUONEB (A & A) INH SCH ×4 (03:28→21:10)
[2019-07-09] MEDS: SYNTHROID PO SCH (06:39)
[2019-07-09] MEDS: HUMALOG SUBQ SCH ×4 (06:39→21:35)
[2019-07-09] MEDS: CLINIMIX E 4.25%-5% SOLUTION 1,000 ML IV SCH (06:41)
[2019-07-09] MEDS ORDERED: DULCOLAX PR ONE (06:49)
[2019-07-09] MEDS ORDERED: LASIX IV STA (06:51)
--- NOTE | 2019-07-09 07:13 | PROGRESS NOTE ---
DATE: 07/09/2019 SUBJECTIVE: Ms. Agrawal is doing fair. The patient is alert, awake, answering questions well. She denied any chest pain. The patient does have low-grade fever. Complaining of back pain. The patient did not have a good bowel movement the last few days. Her ammonia level was elevated. Mild cough. No expectoration. Her ProTime was 1.48 yesterday. Potassium was low-normal. I already gave her potassium supplement. Bilirubin was 2.02. Ammonia level was 68. I am going to increase her lactulose. OBJECTIVE: Vital Signs: Noted. Neck: Supple. No JVD. Lungs: Bibasilar crepitations. Heart: S1 and S2 heard. Abdomen: Soft. The patient does have some distention. Extremities: No cyanosis, clubbing. No acute DVT. 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 CONSIDERATION: Hepatic encephalopathy, chronic liver disease, hepatitis C, back pain, hypokalemia. I am going to increase her lactulose. We started her on Clinimix. The patient is on IV antibiotics. Continue supportive care. Overall prognosis is poor. The patient does have pancreatic mass. Overall plan and prognosis discussed with family. Launch Check Out following the patient with us. Her other problems include hypothyroidism, hypertension, NIDDM. cc: Julio Barnes MD
[2019-07-09 08:04] LABS: AGAP 8; ALB/GLOB RATIO 0.8; ALBUMIN 2.7 g/dL (3.5-5.0); ALKALINE PHOSPHATASE 82 U/L (32-104); BUN 7 mg/dL (8-22); CHLORIDE 103 mmol/L (98-107); COSMO 275; CREATININE 0.6 mg/dL (0.5-0.9); ESTIMATED GFR > 60; GLUCOSE 193 mg/dL (70-104); GOT 54 U/L (10-30); GPT 26 U/L (10-36); PHOSPHORUS 2.3 mg/dL (2.7-4.5); SODIUM 136 mmol/L (136-145); TCO2 25 mmol/L (25-35); TOTAL PROTEIN 5.9 g/dL (6.3-8.3)
[2019-07-09] MEDS: XIFAXAN PO SCH ×2 (08:05→21:34)
[2019-07-09] MEDS: ROCEPHIN 1 GM in NS 50 ML IV SCH (08:06)
[2019-07-09] MEDS: POTASSIUM CHLORIDE 10% LIQUID PO SCH ×2 (08:06→21:34)
[2019-07-09] MEDS: LACTULOSE PO SCH ×3 (08:06→21:34)
[2019-07-09] MEDS: ROBAXIN PO SCH ×2 (08:08→21:34)
[2019-07-09] MEDS: PRINIVIL PO SCH (08:08)
[2019-07-09] MEDS: M.V.I.-12 10 ML, FOLIC ACID 1 MG, MAGNESIUM SULFATE 1 GM, THIAMINE 100 MG in NS 1,000 ML IV SCH (11:15)
[2019-07-09] MEDS: PROTONIX IV SCH (13:59)
[2019-07-09] MEDS: SODIUM CHLORIDE 0.9% INJ SCH (13:59)
--- NOTE | 2019-07-09 17:02 | GASTROENTEROLOGY PROGRESS NOTE ---
DATE: 07/09/2019 SUBJECTIVE: The patient was awake at the time of my visit. Her was at the bedside. He states that she was able to eat some regular food. She is more alert today than she was yesterday. OBJECTIVE: Vital Signs: Temperature 98.2 degrees, pulse 109, respirations 19, blood pressure 126/78 General: The patient was awake. She answered my questions. She is in no acute distress. Abdomen: Full with some distention but soft and nontender. LABORATORY: Chemistry: Sodium 136, potassium 4.0, chloride 103, CO2 25, BUN 7, creatinine 0.6, glucose 193, calcium 8.0, phosphorus 2.3, magnesium 2.0, total bilirubin 1.60, AST 54, ALT 26, alkaline phosphatase 82, ammonia 60. ASSESSMENT AND PLAN: 1. Hepatic encephalopathy has improved. We will discontinue her nasogastric tube, encourage oral intake. She is receiving Clinimix. 2. Chronic liver disease/cirrhosis of the liver secondary to alcoholic liver disease and hepatitis C. Continue current medications including lactulose and Xifaxan. 3. History of pancreatic mass. Recommend following back with Dr. Rollins as recommended for repeat EUS. 4. Nutritional requirements. Patient has started back eating oral foods. We will discontinue her nasogastric tube. We will continue to follow and further plans will be made according to her progress. I have discussed this case with Dr. Haley. Dictated by SHIRA Ruiz for Robert Haley MD cc: SHIRA Romo MD Bharat K. Vakharia, MD [facility]
[2019-07-10] MEDS: CLINIMIX E 4.25%-5% SOLUTION 1,000 ML IV SCH ×2 (00:21→14:06)
[2019-07-10] MEDS: DUONEB (A & A) INH SCH ×4 (03:10→21:54)
[2019-07-10] MEDS: HUMALOG SUBQ SCH ×3 (06:35→16:14)
[2019-07-10] MEDS: PROTONIX PO SCH (06:35)
[2019-07-10] MEDS: SYNTHROID PO SCH (06:35)
[2019-07-10] MEDS: MOTRIN LIQUID PO PRN ×2 (07:39→16:13)
--- NOTE | 2019-07-10 08:17 | PROGRESS NOTE ---
DATE: 07/10/2019 SUBJECTIVE: Ms. Agrawal is more alert and awake. Patient is afebrile, at time tachycardic, tolerating feeding/food well. The patient did have bowel movement yesterday. Nausea seems to be improving. No typical chest pain. No high-grade fever or chills. OBJECTIVE: Vital Signs: Her vital signs noted. Neck: Neck is supple. No JVD. Lungs: Bilateral good air entry present. Decreased air entry both the bases. CVS: S1 and S2 heard. Abdomen: Soft, globular. Bowel sounds present. Extremities: No cyanosis, clubbing. No acute DVT. 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 CONSIDERATION: The patient's problem is multifactorial. Cirrhosis of the liver, hepatitis C, hypertension, hypothyroidism, gastritis and reflux disease, tachycardia. PLAN: I am going to give her a small dose of beta patsy. Continue parenteral nutrition. Plus will encourage oral feeding. Prepare patient for discharge soon. I appreciate GI help managing patient. Overall plan discussed at length with the family, and they are in agreement. Her lab data done yesterday did reveal potassium of 4, BUN was 7, creatinine 0.6. We will encourage physical therapy. cc: Julio Barnes MD
[2019-07-10] MEDS: ROCEPHIN 1 GM in NS 50 ML IV SCH (08:47)
[2019-07-10] MEDS: PRINIVIL PO SCH (08:49)
[2019-07-10] MEDS: ROBAXIN PO SCH ×2 (08:49→20:39)
[2019-07-10] MEDS: LACTULOSE PO SCH (08:49)
[2019-07-10] MEDS: POTASSIUM CHLORIDE 10% LIQUID PO SCH ×2 (08:49→20:39)
[2019-07-10] MEDS: XIFAXAN PO SCH ×2 (08:49→20:39)
[2019-07-10] MEDS ORDERED: TOPROL XL PO SCH (09:00)
[2019-07-10] MEDS: M.V.I.-12 10 ML, FOLIC ACID 1 MG, MAGNESIUM SULFATE 1 GM, THIAMINE 100 MG in NS 1,000 ML IV SCH (10:04)
--- NOTE | 2019-07-10 19:31 | GASTROENTEROLOGY PROGRESS NOTE ---
DATE: 07/10/2019 SUBJECTIVE: The patient was resting. She did arouse. She was alert. Her family was at the bedside. states she did eat some of her lunch. OBJECTIVE: Vital Signs: Temperature 97.3 degrees, pulse 102, respirations 16, blood pressure 129/72. General: Patient was asleep but aroused easily and was alert. She answered some of my questions. Abdomen: With distention/ascites but soft and nontender. LABORATORY: Hematology: WBC 6.29, hemoglobin 10.6, hematocrit 32.2, MCV 102.5, platelets 120,000 from 07/07/2019. Chemistry: Sodium 136, potassium 4.0, chloride 103, CO2 25, BUN 7, creatinine 0.6, glucose of 193, total bilirubin 1.60, AST 54, ALT 26, alkaline phosphatase 82. This was from 07/09/2019. ASSESSMENT AND PLAN: 1. Hepatic encephalopathy, improving. 2. Chronic liver disease, cirrhosis of the liver secondary to alcoholic liver disease and hepatitis C. 3. History of pancreatic mass. Recommend she follow back with Dr. Cotter as recommended for repeat endoscopic ultrasound. 4. Nutritional requirements. Her nasogastric feeding tube was removed. She is tolerating oral foods. Recommend continue p.o. intake. We will continue to follow and further plans will be made according to her progress. I have recommended she follow up with us as an outpatient. I have discussed this case with Dr. Haley. Dictated by SHIRA Ruiz for Robert Haley MD cc: SHIRA Romo MD Bharat K. Vakharia, MD
[2019-07-11] MEDS: HUMALOG SUBQ SCH ×4 (00:28→17:10)
[2019-07-11] MEDS: DUONEB (A & A) INH SCH ×3 (03:17→15:10)
[2019-07-11] MEDS: MOTRIN LIQUID PO PRN ×2 (03:40→09:34)
[2019-07-11] MEDS: CLINIMIX E 4.25%-5% SOLUTION 1,000 ML IV SCH (05:43)
[2019-07-11] MEDS: SYNTHROID PO SCH (06:24)
[2019-07-11] MEDS: PROTONIX PO SCH (06:24)
[2019-07-11 07:55] LABS: BASO# 0.05 X1000 (0.0-0.2); BASO% 0.9 % (0.0-0.8); EOS# 0.24 X1000 (0.0-0.7); EOS% 4.2 % (0.0-10.0); HEMATOCRIT 32.3 % (37.0-47.0); HEMOGLOBIN 10.5 g/dL (12.0-16.0); LYMPH# 1.03 X1000 (1.2-3.4); MCH 33.8 PG (27-31); MCHC 32.5 g/dL (33-37); MCV 103.9 FL (81-99); MONO# 0.88 X1000 (0.11-0.59); MONO% 15.4 % (1.7-9.3); MPV 9.8 FL (7.4-10.4); NEUT# 3.51 X1000 (1.4-6.5); NEUT% 61.5 % (42.2-75.2); PLT 102 X1000 (130-400); RBC 3.11 XMIL (4.2-5.4); RDW 16.8 % (11.5-14.5); WBC 5.71 X1000 (4.8-10.8)
[2019-07-11 08:38] LABS: AGAP 4; ALB/GLOB RATIO 0.9; ALBUMIN 2.8 g/dL (3.5-5.0); ALKALINE PHOSPHATASE 86 U/L (32-104); BUN 7 mg/dL (8-22); CALCIUM 8.3 mg/dL (8.8-10.2); CHLORIDE 100 mmol/L (98-107); COSMO 270; CREATININE 0.5 mg/dL (0.5-0.9); ESTIMATED GFR > 60; GLUCOSE 165 mg/dL (70-104); GOT 53 U/L (10-30); GPT 22 U/L (10-36); POTASSIUM 4.1 mmol/L (3.5-5.1); SODIUM 134 mmol/L (136-145); TCO2 30 mmol/L (25-35); TOTAL BILIRUBIN 1.28 mg/dL (0.20-1.00)
--- NOTE | 2019-07-11 08:43 | PROGRESS NOTE ---
DATE: 07/11/2019 SUBJECTIVE: Ms. Agrawal is feeling better. She is tolerating food well. We removed the Ramsay catheter. The patient is urinating well. The patient did have a bowel movement. Nausea and vomiting improving. Her vital signs noted. At times, tachycardia. No chest pain or palpitations. OBJECTIVE: Neck: Supple. No JVD. Lungs: Bilateral good air entry present. CVS: S1 and S2 heard. Abdomen: Soft, globular. Bowel sounds present. [employer]: Alert, awake, able to move all 4 limbs. ASSESSMENT AND PLAN: Clinically, the patient is improving. I am planning to discharge the patient home this evening. Her problems include cirrhosis of the liver, gastritis, hepatitis C, hypertension, tachycardia (I increased her beta patsy), pancreatic mass (she is going to see Dr. Cotter as an outpatient). Overall plan discussed at length with the patient and sister. Will follow her morning labs done this morning. cc: Julio Barnes MD
[2019-07-11] MEDS ORDERED: TOPROL XL PO SCH (09:00)
[2019-07-11] MEDS: M.V.I.-12 10 ML, FOLIC ACID 1 MG, MAGNESIUM SULFATE 1 GM, THIAMINE 100 MG in NS 1,000 ML IV SCH (09:26)
[2019-07-11] MEDS: ATIVAN PO SCH ×2 (09:26→17:26)
[2019-07-11] MEDS: POTASSIUM CHLORIDE 10% LIQUID PO SCH (09:27)
[2019-07-11] MEDS: LACTULOSE PO SCH (09:27)
[2019-07-11] MEDS: PRINIVIL PO SCH (09:27)
[2019-07-11] MEDS: XIFAXAN PO SCH (09:27)
[2019-07-11] MEDS: ROBAXIN PO SCH (09:28)
[2019-07-11] MEDS: ROCEPHIN 1 GM in NS 50 ML IV SCH (09:28)
[2019-07-11 17:03] VITALS: BP 139/93
--- NOTE | 2019-07-15 09:24 | DISCHARGE SUMMARY ---
ADMISSION DATE: 06/27/2019 DISCHARGE DATE: 07/11/2019 FINAL DISCHARGE DIAGNOSIS: 1. Hepatitic encephalopathy. 2. Acute hepatitis C. 3. Cirrhosis of the liver. 4. Pancreatic mass. 5. Gastritis and reflux disease. 6. Hypothyroidism. 7. Hypertension. 8. Ileus. 9. Metabolic encephalopathy. 10. Hypokalemia. HOSPITAL COURSE: Ms. Agrawal a 59-year-old white female patient admitted with upper abdominal pain, poor oral intake. Patient had altered mental status, some diarrhea. weakness, excessive somnolence. Unfortunately the patient was still drinking alcohol. The patient was getting weaker. I evaluated patient in the office and decided to admit her. The patient was more jaundice. The patient was admitted to telemetry bed. Clinically patient was dehydrated. Patient was started on IV hydration, symptomatic treatment,. IV antibiotics. GI consult obtained with Dr. Haley. The patient's clinical condition, initially deteriorated significantly and it looks like patient went into hepatic coma. We treated her with supportive care, nutritional support, electrolyte replacement, multivitamin. Family requested DNR and supportive care. Her clinical condition gradually improved and the patient woke up. She started responding better. The patient did have good family support. I have multiple time discussion with the family and patient importance of alcohol cessation and they agreed to watch patient for the same. The patient became much more alert and awake. At time, I have to put NG tube and rectal tube. Overall the patient did well and I decided to discharge patient home on June. I advised patient to have followup with Dr. Haley, Dr. Cotter for follow up on her pancreatic mass. We got her home health. Follow up with me in 1 week. Continue the lactulose, supportive care. Strict instructions not to drink alcohol. Fall precaution. The patient and understood and agreed. Discharge medication as per separate sheet. LABORATORY AND DIAGNOSTIC DATA: Hemoglobin 10.5, hematocrit 32.3 WBC count 5.71 platelet count 102,000. Sodium 134, potassium 4.1, anion gap was 4, blood glucose 165, total bilirubin 1.24. Her admission bilirubin was. 2.69. It went up to 3.07. Her ammonia level highest being 129. Patient's TSH was very high. Free T4 was low. We treated her appropriately. Hepatitis C genotype 1A and hepatitis C viral load was 73,889. The patient had a CT scan of the abdomen and pelvis done without contrast which revealed bilateral pleural effusion and ascites, cirrhosis of the liver. Possibility of gastritis cannot be excluded. Chronic pancreatitis changes. Ileus possibility of partial small bowel obstruction. The patient also had abdominal ultrasound done and results reviewed. DISCHARGE CONDITION: Overall discharge condition stable. DISCHARGE PLAN: Discussed at length with the patient and her . They are in agreement. cc: Julio Barnes MD
== END 2019-07-11 18:25 | disposition home health service (06) | DRG 391 ==
LOC: DIRADM → OBSVTOIN 13:06 → EDIPHOLD 13:46 → 3N 18:33
PROVIDERS: ADMIT Internal Medicine; ATTEND Internal Medicine